=== PATIENT | male | born 1945 | race Two or more races ===

== ENCOUNTER 2016-12-17 13:17 | Inpatient (IN) | payer MEDICARE, OTHER ==
[2016-12-17 13:31] VITALS: TEMP 98.1; BMI 28.2
--- NOTE | 2016-12-17 13:43 | PDOC ---
Attending Attestation - HPI HPI: 12/17/16 14:45 70 year old male, with significant past medical history of , who was sent into the emergency department by Dr. Baker for admission for a lung biopsy after an outpatient abdomen and pelvis CT revealed a left lower lobe mass. The patient is complaining of a cough and sharp left upper back pain. Denies chest pain, SOB. Denies fever, chills, nausea, vomiting, abdominal pain. Denies leg swelling. Denies recent travel Allergies: NKDA PCP: Dr. Baker - Physicial Exam PE: 12/17/16 14:45 Vitals: Triage Vital signs reviewed General Appearance: no acute distress, well nourished well developed Head: Atraumatic Eyes: Pupils equal reactive round, extraocular movement intact Chest Wall: Nontender Cardiac: Regular rate and rhythym, no murmurs, no rubs, no gallops Lungs: Clear to auscultation bilateral, good air movement bilaterally Abdomen: Soft, non distended, normal bowel sounds, non tender to palpation Extremities: Full range of motion to all extremities, no cyanosis, clubbing, or edema Skin: Warm and dry, no rashes or lesions, no rash, no petechiae Psych: Normal mood, normal affect <Leslye Bradford - Last Filed: 12/17/16 14:45> - Resident Resident Name: Osmel Rod - ED Attending Attestation I have performed the following: I have examined & evaluated the patient, The case was reviewed & discussed with the resident, I agree w/resident's findings & plan, Exceptions are as noted - Medical Decision Making 12/17/16 15:47 Patient sent to emergency department for admission for biopsy for pulmonary nodule. Labs and admit for further management. 12/17/16 19:06 Patient was told by interventional radiology they cannot to his procedure for biopsy till Tuesday. Patient did not want to stay in the hospital till Tuesday to wait for this procedure. We attempted to call his primary care provider we asked the patient to wait while we contacted his primary care provider in the interim the patient eloped prior to this he told me that he will follow-up with his doctor on Tuesday Attempted to call the patient at home no answer Patient had understanding that he needs to have biopsy done expressed to me that he would follow-up with his doctor on Tuesday <Bandar Roman - Last Filed: 12/17/16 19:06>
--- NOTE | 2016-12-17 14:15 | PDOC ---
History of Present Illness - General Chief Complaint: Respiratory Stated Complaint: (PCP SENT) FOR ADMIT Time Seen by Provider: 12/17/16 13:37 History Source: Patient Exam Limitations: No Limitations - History of Present Illness Initial Comments: 12/18/16 00:02 70M with pmh of HTN COPD, HLD and tobacco use , sent to the ED for evaluation of Left lower lobe lung mass on CT by Dr. Baker for admission for a lung biopsy after an outpatient abdomen and pelvis CT revealed a left lower lobe mass. The patient is complaining of a cough and sharp left upper back pain. Denies chest pain, SOB. Denies fever, chills, nausea, vomiting, abdominal pain. Denies leg swelling. Denies recent travel Past History - Past Medical History Allergies/Adverse Reactions: Allergies Allergy/AdvReac Type Severity Reaction Status Date / Time No Known Allergies Allergy Verified 12/17/16 13:24 Home Medications: Ambulatory Orders Unobtainable [Unobtainable] 12/17/16 COPD: No HTN: Yes Hypercholesterolemia: Yes Psychiatric Problems: Yes (DEPRESSION/INSOMNIA) - Immunization History Immunization Up to Date: Yes - Suicide/Smoking/Psychosocial Hx Smoking History: Current every day smoker Have you smoked in the past 12 months: No Number of Cigarettes Smoked Daily: 8 Information on smoking cessation initiated: No Hx Alcohol Use: No Drug/Substance Use Hx: No Substance Use Type: None Review of Systems - Review of Systems Able to Perform ROS?: Yes Is the patient limited [place] proficient: No Constitutional: No: Symptoms Reported HEENTM: No: Symptoms Reported Respiratory: Yes: Cough, Shortness of Breath Cardiac (ROS): No: Symptoms Reported ABD/GI: No: Symptoms Reported : No: Symptoms Reported Musculoskeletal: No: Symptoms Reported Integumentary: No: Symptoms Reported Neurological: No: Symptoms reported *Physical Exam - Vital Signs Last Vital Signs Temp Pulse Resp BP Pulse Ox 98.1 F 67 18 123/74 97 12/17/16 13:25 12/17/16 13:25 12/17/16 13:25 12/17/16 13:25 12/17/16 13:25 - Physical Exam General Appearance: Yes: Nourished, Appropriately Dressed, Apparent Distress HEENT: positive: EOMI, FARHAT Neck: positive: Trachea midline. negative: Tender Respiratory/Chest: positive: Lungs Clear, Normal Breath Sounds. negative: Chest Tender Cardiovascular: positive: Regular Rhythm, Regular Rate, S1, S2 Gastrointestinal/Abdominal: positive: Normal Bowel Sounds, Soft. negative: Tender ED Treatment Course - LABORATORY CBC & Chemistry Diagram: 12/17/16 14:00 12/17/16 14:00 - RADIOLOGY Radiology Studies Ordered: Category Date Time Status CXRPORT [CHEST X-RAY PORTABLE*] [RAD] Stat Radiology 12/17/16 13:50 Taken Medical Decision Making - Medical Decision Making 12/18/16 00:05 70M here for evaluation of lower left lobe mass of the lung Patient was told by interventional radiology they cannot to his procedure for biopsy till Tuesday. Patient did not want to stay in the hospital till Tuesday to wait for this procedure. We attempted to call his primary care provider we asked the patient to wait while we contacted his primary care provider in the interim the patient eloped prior to this he told me that he will follow-up with his doctor on Tuesday Attempted to call the patient at home no answer Patient had understanding that he needs to have biopsy done expressed to me that he would follow-up with his doctor on Tuesday *DC/Admit/Observation/Transfer Diagnosis at time of Disposition: Mass of left lung - Discharge Dispostion Disposition: ELOPED Admit: Yes - Referrals - Patient Instructions - Post Discharge Activity
[2016-12-17 14:24] LABS: BASOPHIL 0.7 % (0-2.0); EOSINOPHIL 0.5 % (0-4.5); MCHC 33.6 g/dl (32.0-35.9); MEAN CELL VOLUME 89.2 fl (80-96); MEAN PLT VOLUME 7.8 fl (7.5-11.1); NEUTROPHILS 63.3 % (42.8-82.8); PLATELET COUNT 211 K/MM3 (134-434); RDW 13.6 % (11.9-15.9); WHITE BLOOD COUNT 8.6 K/mm3 (4.0-10.0)
[2016-12-17 14:43] LABS: URINE APPEARANCE CLEAR; URINE BILIRUBIN NEGATIVE (NEGATIVE); URINE BLOOD 2+ (NEGATIVE); URINE COLOR STRAW; URINE GLUCOSE (UA) NEGATIVE (NEGATIVE); URINE KETONE NEGATIVE (NEGATIVE); URINE NITRITE NEGATIVE (NEGATIVE); URINE PROTEIN NEGATIVE (NEGATIVE); URINE UROBILINOGEN NEGATIVE mg/dL (0.2-1.0)
[2016-12-17 14:45] LABS: URINE HYALINE CAST 1 /lpf; URINE RBC 1
[2016-12-17 14:46] LABS: URINE WBC 0
[2016-12-17 14:58] LABS: ALBUMIN 3.7 g/dl (3.4-5.0); ANION GAP 7 (8-16); CALCIUM 8.6 mg/dL (8.5-10.1); CO2 27 mmol/L (21-32); CREATININE 0.6 mg/dL (0.7-1.3); GLUCOSE,RANDOM 98 mg/dL (74-106); SGOT/AST 21 U/L (15-37); SGPT/ALT 38 U/L (12-78)
[2016-12-17 15:00] LABS: ALK PHOS 137 U/L (45-117); BILIRUBIN,TOTAL 0.5 mg/dL (0.2-1.0); TOT PROT 7.7 g/dl (6.4-8.2)
--- NOTE | 2016-12-17 16:13 | PN ---
Progress Note (short form) - Note Progress Note: PULMONARY CONSULTATION DICTATED 12/17/16 IMP LLL MASS LIKELY BRONCHOGENIC CA DYSPNEA HTN HYPERCHOLESTEROLEMIA PLAN INHALED BRONCHODILATORS O2 PRN CT GUIDED ASP BX LLL MASS PET SCAN OUTPATIENT DR NGUYEN Problem List - Problems (1) Dyspnea Code(s): R06.00 - DYSPNEA, UNSPECIFIED (2) Mass of left lung Code(s): R91.8 - OTHER NONSPECIFIC ABNORMAL FINDING OF LUNG FIELD (3) HTN (hypertension) Code(s): I10 - ESSENTIAL (PRIMARY) HYPERTENSION (4) Hypercholesteremia Code(s): E78.00 - PURE HYPERCHOLESTEROLEMIA, UNSPECIFIED (5) Tobacco abuse Code(s): Z72.0 - TOBACCO USE
[2016-12-17] MEDS ORDERED: ALBUTEROL SO4 2.5/IPRATROPIUM 0.5 INH SOL 3 ML VIAL.NEB. NEB PRN (16:14)
[2016-12-17 16:16] VITALS: BP 124/74; PULSE 65
[2016-12-17 17:16] LABS: URINE LEUK ESTERASE Negative (NEGATIVE)
--- NOTE | 2016-12-17 17:54 | CONS ---
DATE OF CONSULTATION: 12/17/2016 PULMONARY CONSULTATION REFERRING PHYSICIAN: Sohail Mcdaniel M.D. HISTORY OF PRESENT ILLNESS: The patient is a 70-year-old male, not any past medical history, admitted to [facility] for evaluation of left lower lobe mass. Patient has longstanding history of tobacco use. He has approximately 1 pack per day since teenage years. He apparently underwent a CT of the abdomen and pelvis yesterday which revealed left lower lobe mass, subsequently advised to go to the emergency room. He has been complaining of increasing cough and sharp upper left back pain recently. He denies any hemoptysis, denies any fevers or weight loss or night sweats. He does complain of shortness of breath with exertion. Denies any fevers or chills. He was sent to the emergency room above. Patient denies any history of occupational exposures. He was born in [facility] and moved to the [facility] in the early . There is no history of recent travel. No history of DVT or PE in the past. PAST MEDICAL HISTORY: Again this includes likely mild COPD. Includes hypertension, hypercholesterolemia, depression, insomnia. SOCIAL HISTORY: Born in [facility], moved to the [facility] in early . No occupational exposures. History of tobacco use, 1 pack per day since teenage years. REVIEW OF SYSTEMS: No orthopnea, no PND. Positive cough, no hemoptysis. Positive back pain, no chest pain, no palpitations, no abdominal pain. MEDICATION: Include unknown medications. PHYSICAL EXAMINATION: General: The patient is a well-developed, well-nourished male, awake, alert, in no acute distress. Vital signs: He is currently afebrile. Blood pressure is 123/74, respiratory rate 18, weight is 175 pounds. HEENT: Head is normocephalic, atraumatic. Neck: Supple. Heart: Regular. S1, S2. Chest: A few scattered rhonchi with a few scattered bilateral wheezes. Abdomen: Soft. Bowel sounds positive. Extremities: No cyanosis, edema. LABORATORY: WBC is 8.6, hemoglobin 13.2, hematocrit 39.2 with platelet count of 211,000. BUN 9, creatinine 0.6. Abdominal CT reveals a left lower lobe mass, 2.9 x 1.8 cm. IMPRESSION: 1. Left lower lobe mass, likely bronchogenic carcinoma in view of longstanding history of tobacco use. 2. Likely underlying chronic obstructive pulmonary disease. 3. Hypertension. 4. Hypercholesterolemia. PLAN: Inhaled bronchodilators, nasal O2 p.r.n. Schedule biopsy, PET scan as outpatient. Also PFTs as outpatient. NINFA NGUYEN M.D. GIRISH/[id number]
== END 2016-12-17 16:25 | disposition left against medical advice (07) | DRG 182 ==
LOC: JER 13:17 → JERBED 14:15
PROVIDERS: ADMIT Family Medicine; ATTEND Family Medicine
DX: D38.1 Neoplasm of uncertain behavior of trachea, bronchus and lung (principal); R91.8 Other nonspecific abnormal finding of lung field; J44.9 Chronic obstructive pulmonary disease, unspecified; F17.210 Nicotine dependence, cigarettes, uncomplicated; I10 Essential (primary) hypertension; F32.9 Major depressive disorder, single episode, unspecified; G47.00 Insomnia, unspecified; E78.00 Pure hypercholesterolemia, unspecified
CPT/HCPCS: 36415; 71010-TC; 80053; 81003; 81015; 85025; 99282-25

== ENCOUNTER 2016-12-28 08:10 | Day surgery (SDC) | payer MEDICARE, OTHER ==
[2016-12-27 10:49] VITALS: BMI 28.2
[2016-12-28 09:06] LABS: INR 1.06 (0.82-1.09)
[2016-12-28] MEDS ORDERED: ACETAMINOPHEN 500 MG TABLET (FP) PO PRN (17:58)
[2016-12-28] MEDS ORDERED: oxyCODONE HCL 5 MG TABLET PO PRN (17:59)
[2016-12-28] MEDS: HEPARIN NA (PORCINE) 5,000 UNITS/ML 1ML VIAL SQ SCH (21:01)
[2016-12-28] MEDS ORDERED: ATORVASTATIN CA 40 MG TABLET (FP) PO SCH (22:00)
[2016-12-28] MEDS ORDERED: ZOLPIDEM TARTRATE 5 MG TABLET PO SCH (22:00)
[2016-12-29 07:32] LABS: BASOPHIL 0.6 % (0-2.0); EOSINOPHIL 1.9 % (0-4.5); MCH 29.8 pg (25.7-33.7); MCHC 33.7 g/dl (32.0-35.9); MEAN CELL VOLUME 88.4 fl (80-96); MEAN PLT VOLUME 8.8 fl (7.5-11.1); NEUTROPHILS 49.1 % (42.8-82.8); PLATELET COUNT 232 K/MM3 (134-434); RDW 13.7 % (11.9-15.9); WHITE BLOOD COUNT 8.8 K/mm3 (4.0-10.0)
[2016-12-29] MEDS ORDERED: PT OWN MED DRAWER 7, Y5N ONE (09:10)
[2016-12-29] MEDS: HEPARIN NA (PORCINE) 5,000 UNITS/ML 1ML VIAL SQ SCH (09:13)
[2016-12-29] MEDS ORDERED: VENLAFAXINE HCL 75 MG E.R. CAPSULES (FP) PO SCH (10:00)
[2016-12-29] MEDS ORDERED: PANTOPRAZOLE 20 MG TABLET (FP) PO SCH (10:00)
[2016-12-29 10:12] VITALS: BP 117/69; PULSE 62; TEMP 97.7
--- NOTE | 2016-12-29 11:17 | CON.PULM ---
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 No: AFIB, CAD, CHF Pulmonary: Yes: COPD Gastrointestinal: No: Ascites Hepatobiliary: No: Cirrhosis Renal/: No: Renal Failure Heme/Onc: No: Anemia Psych: No: Addictions Musculoskeletal: No: Bursitis Endocrine: No: Diabetes Mellitus - Past Surgical History Past Surgical History: Yes: None - Alcohol/Substance Use Hx Alcohol Use: No - Smoking History Smoking history: Current every day smoker Have you smoked in the past 12 months: No Aproximately how many cigarettes per day: 8 - Social History ADL: Independent Place of : Other History of Recent Travel: No Home Medications - Allergies Allergies/Adverse Reactions: Allergies Allergy/AdvReac Type Severity Reaction Status Date / Time No Known Allergies Allergy Verified 12/27/16 10:49 - Home Medications Home Medications: Ambulatory Orders Atorvastatin Ca [Lipitor] 40 mg PO HS 12/27/16 Ibuprofen [Motrin -] 600 mg PO PRN PRN 12/27/16 Oxycodone HCl/Acetaminophen [Percocet 5-325 mg Tablet] 1 tablet PO PRN PRN 12/27 Pantoprazole Sodium [Protonix -] 20 mg PO DAILY 12/27/16 Zolpidem Tartrate 10 mg PO HS 12/27/16 Acetaminophen [Tylenol -] 500 mg PO Q6H PRN 12/28/16 Venlafaxine HCl ER [Effexor Xr -] 150 mg PO DAILY 12/28/16 Family Disease History - Family Disease History Family History: Unremarkable Review of Systems - Review of Systems Constitutional: denies: Fever Eyes: denies: Blurred Vision HENT: denies: Difficult Swallowing Neck: denies: Decreased ROM Cardiovascular: denies: Chest Pain Respiratory: denies: Cough Gastrointestinal: denies: Abdominal Pain Genitourinary: denies: Burning Breasts: reports: No Symptoms Reported Musculoskeletal: reports: No Symptoms Integumentary: reports: No Symptoms Psychiatric: reports: Depression Physical Exam Vital Sings: Vital Signs Temperature 97.7 F 12/29/16 08:05 Pulse Rate 62 12/29/16 08:05 Respiratory Rate 18 12/29/16 08:05 Blood Pressure 117/69 12/29/16 08:05 O2 Sat by Pulse Oximetry (%) 98 12/28/16 17:19 Constitutional: Yes: Calm Eyes: Yes: EOM Intact HENT: Yes: Normocephalic Neck: Yes: Trachea Midline Cardiovascular: Yes: Regular Rate and Rhythm Respiratory: Yes: CTA Bilaterally ...Inspection: Yes: WNL Gastrointestinal: Yes: WNL Extremities: Yes: WNL Labs: CBC, BMP 12/29/16 06:00 REST REVIEWED Imaging - Results Chest X-ray: Report Reviewed, Image Reviewed Problem List - Problems (1) Iatrogenic pneumothorax Code(s): J95.811 - POSTPROCEDURAL PNEUMOTHORAX (2) HTN (hypertension) Code(s): I10 - ESSENTIAL (PRIMARY) HYPERTENSION (3) Hypercholesteremia Code(s): E78.00 - PURE HYPERCHOLESTEROLEMIA, UNSPECIFIED (4) Mass of left lung Code(s): R91.8 - OTHER NONSPECIFIC ABNORMAL FINDING OF LUNG FIELD Assessment/Plan IATROGENIC PTX S/P LUNG BX DIMINISHED IN SIZE SUGGEST DISCHARGE HOME TO RETURN FOR REPEAT CXR 24-48 HOURS WILL RETURN SOONER IF ANY SYMPTOMS DEVELOP IE. SOB/CP/WORSENING VJ MCKENZIE MD
--- NOTE | 2016-12-29 12:36 | HP ---
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 No: AFIB, CAD, CHF Pulmonary: Yes: COPD Gastrointestinal: No: Ascites Hepatobiliary: No: Cirrhosis Renal/: No: Renal Failure Heme/Onc: No: Anemia Psych: No: Addictions Musculoskeletal: No: Bursitis Endocrine: No: Diabetes Mellitus - Past Surgical History Past Surgical History: Yes: None - Smoking History Smoking history: Current every day smoker Have you smoked in the past 12 months: No Aproximately how many cigarettes per day: 8 - Alcohol/Substance Use Hx Alcohol Use: No - Social History ADL: Independent History of Recent Travel: No Home Medications - Allergies Allergies/Adverse Reactions: Allergies Allergy/AdvReac Type Severity Reaction Status Date / Time No Known Allergies Allergy Verified 12/27/16 10:49 - Home Medications Home Medications: Ambulatory Orders Atorvastatin Ca [Lipitor] 40 mg PO HS 12/27/16 Ibuprofen [Motrin -] 600 mg PO PRN PRN 12/27/16 Oxycodone HCl/Acetaminophen [Percocet 5-325 mg Tablet] 1 tablet PO PRN PRN 12/27 Pantoprazole Sodium [Protonix -] 20 mg PO DAILY 12/27/16 Zolpidem Tartrate 10 mg PO HS 12/27/16 Acetaminophen [Tylenol -] 500 mg PO Q6H PRN 12/28/16 Venlafaxine HCl ER [Effexor Xr -] 150 mg PO DAILY 12/28/16 Physical Examination Vital Signs: Vital Signs Temperature 97.7 F 12/29/16 08:05 Pulse Rate 62 12/29/16 08:05 Respiratory Rate 18 12/29/16 08:05 Blood Pressure 117/69 12/29/16 08:05 O2 Sat by Pulse Oximetry (%) 98 12/28/16 17:19 Labs: CBC, BMP 12/29/16 06:00
--- NOTE | 2016-12-29 12:38 | DS ---
Physical Examination Vital Signs: Vital Signs Temperature 97.7 F 12/29/16 08:05 Pulse Rate 62 12/29/16 08:05 Respiratory Rate 18 12/29/16 08:05 Blood Pressure 117/69 12/29/16 08:05 O2 Sat by Pulse Oximetry (%) 98 12/28/16 17:19 Labs: CBC, BMP 12/29/16 06:00 Discharge Summary Reason For Visit: LUNG MASS Current Active Problems Iatrogenic pneumothorax (Acute) Condition: Improved - Instructions Diet, Activity, Other Instructions: chest xray on tuesday Referrals: Jose Baker MD [Staff Physician] - 1 Week Disposition: HOME - Home Medications Comprehensive Discharge Medication List: Ambulatory Orders Atorvastatin Ca [Lipitor] 40 mg PO HS 12/27/16 Ibuprofen [Motrin -] 600 mg PO PRN PRN 12/27/16 Oxycodone HCl/Acetaminophen [Percocet 5-325 mg Tablet] 1 tablet PO PRN PRN 12/27 Pantoprazole Sodium [Protonix -] 20 mg PO DAILY 12/27/16 Zolpidem Tartrate 10 mg PO HS 12/27/16 Acetaminophen [Tylenol .Extra-Strength -] 500 mg PO Q6H PRN 12/28/16 Venlafaxine HCl ER [Effexor Xr -] 150 mg PO DAILY 12/28/16
--- NOTE | 2017-01-03 14:03 | PATH ---
Surgical Pathology Report Patient Name: MALIK MASSEY Med. Rec. #: [id number] /Age/Gender: 1945 (Age: 71) / M Account: [id number] Location: [facility] MED/SURG Taken: 12/28/2016 Received: 12/28/2016 Reported: 01/03/2017 Physicians: Lavonne Ontiveros M.D. Specimen(s) Received LUNG BIOPSY Clinical History Preoperative diagnosis: 70-year-old male with left lung mass Postoperative diagnosis: Left lung mass, rule out primary lung neoplasm Final Diagnosis LUNG, LEFT, NEEDLE CORE BIOPSY: PULMONARY ADENOCARCINOMA, MODERATELY TO POORLY DIFFERENTIATED/UNDIFFERENTIATED. Comment: Sections reveal an adenocarcinoma growing with lepidic and acinar patterns. Additionally there are areas with poorly differentiated cells growing with a solid pattern. Immunohistochemical stains performed and interpreted at [facility] show the following results: All of the neoplastic cells stain with AE1/3 and CK7. TTF-1 is positive in the lepidic and acinar areas, but not in the solid area. P63 and CK20 are negative. Immunohistochemical stains performed at [place], [place] ([id number]) and interpreted at [facility] show the following results: The lepidic and acinar areas stain with NAZARIO and MOC-31, but not the solid areas. There is no staining with CK5/6, p40, or CD56. The overall findings are consistent with a pulmonary adenocarcinoma with a poorly differentiated to undifferentiated component. No squamous differentiation is identified. PD-L1 (Keytruda) IHC, Clone 22C3 Pharm DX performed and interpreted at [place], [place] ([id number]) shows the following: RESULT: PD-L1 (Keytruda) TPS: >90% (High PD-L1 Expression) Reference Range: TPS=Tumor Proportion Score (% of at least 100 viable tumor cells showing complete or partial membrane staining at = 1+) TPS <1% = No Expression TPS 1-49% = Low Expression. (Eligible for second line treatment with Keytruda) TPS =50% = High Expression. (Eligible for first or second line treatment with Keytruda) This case was initially discussed with Dr. Jose Baker on December 29, 2016. Electronically Signed Chano Celestin M.D. Gross Description Received in formalin labeled "left lung biopsy," are 4 aguillon, cylindrical portions of soft tissue ranging from 0.2-0.8 cm in length and averaging 0.1 cm in diameter. The specimen is submitted in toto in one cassette. 12/28/201612/28/2016
== END 2016-12-29 15:24 | disposition home or self-care (01) ==
LOC: JRADIR 08:10 → J8W 17:44 → JRADIR 12-29 15:24
PROVIDERS: ATTEND Family Medicine
PROC: 0BBL3ZX Excision of Left Lung, Percutaneous Approach, Diagnostic (ICD-10-PCS; 2016-12-28)
PROC: BB4CZZZ Ultrasonography of Mediastinum (ICD-10-PCS; principal; 2016-12-28 10:00)
DX: C34.92 Malignant neoplasm of unspecified part of left bronchus or lung (principal)
CPT/HCPCS: 32405; 36415; 71010-TC; 71035-TC; 77012-TC; 85025; 85610; 88305-TC; 88341-TC; 88342-TC; 94760; J1644

== ENCOUNTER 2017-07-06 12:38 | Inpatient (IN) | payer MEDICARE, OTHER ==
--- NOTE | 2017-07-06 13:46 | PDOC ---
History of Present Illness - General Chief Complaint: Shortness of Breath Stated Complaint: CHEST PAIN Time Seen by Provider: 07/06/17 12:46 History Source: Patient - History of Present Illness Timing/Duration: reports: other Associated Symptoms: reports: chest pain/soreness, cough, fever/chills, shortness of breath. denies: headache Past History - Past Medical History Allergies/Adverse Reactions: Allergies Allergy/AdvReac Type Severity Reaction Status Date / Time No Known Allergies Allergy Verified 07/06/17 12:46 Home Medications: Ambulatory Orders Atorvastatin Ca [Lipitor] 40 mg PO HS 12/27/16 Ibuprofen [Motrin -] 600 mg PO PRN PRN 12/27/16 Oxycodone HCl/Acetaminophen [Percocet 5-325 mg Tablet] 1 tablet PO PRN PRN 12/27 Pantoprazole Sodium [Protonix -] 20 mg PO DAILY 12/27/16 Zolpidem Tartrate 10 mg PO HS 12/27/16 Acetaminophen [Tylenol .Extra-Strength -] 500 mg PO Q6H PRN 12/28/16 Venlafaxine HCl ER [Effexor Xr -] 150 mg PO DAILY 12/28/16 Anemia: No Asthma: No Cancer: Yes Cardiac Disorders: No CVA: No COPD: No CHF: No Dementia: No Diabetes: No GI Disorders: No Disorders: No HTN: Yes Hypercholesterolemia: Yes Liver Disease: No Psychiatric Problems: Yes (DEPRESSION/INSOMNIA) Seizures: No Thyroid Disease: No Lung CA: Yes - Surgical History Abdominal Surgery: No Appendectomy: No Cardiac Surgery: No Cholecystectomy: No Lung Surgery: No Neurologic Surgery: No Orthopedic Surgery: No (sx fx left le ) - Immunization History Immunization Up to Date: Yes - Suicide/Smoking/Psychosocial Hx Smoking History: Current every day smoker Have you smoked in the past 12 months: Yes Number of Cigarettes Smoked Daily: 10 Information on smoking cessation initiated: No 'Breaking Loose' booklet given: 12/28/16 Hx Alcohol Use: No Drug/Substance Use Hx: No Substance Use Type: None Hx Substance Use Treatment: No Review of Systems - Review of Systems Constitutional: Yes: Fever Respiratory: Yes: Cough, Shortness of Breath. No: Wheezing Cardiac (ROS): Yes: Chest Pain *Physical Exam - Vital Signs Last Vital Signs Temp Pulse Resp BP Pulse Ox 99.5 F 101 H 28 H 104/78 99 07/06/17 12:40 07/06/17 13:11 07/06/17 12:40 07/06/17 12:40 07/06/17 13:11 - Physical Exam General Appearance: Yes: Appropriately Dressed. No: Apparent Distress HEENT: positive: Normal Voice Neck: positive: Supple. negative: Lymphadenopathy (R), Lymphadenopathy (L) Respiratory/Chest: positive: Decreased Breath Sounds. negative: Respiratory Distress Gastrointestinal/Abdominal: positive: Soft. negative: Tender Extremity: positive: Normal Inspection Integumentary: positive: Dry, Warm Neurologic: positive: Fully Oriented, Alert, Normal Mood/Affect ED Treatment Course - LABORATORY CBC & Chemistry Diagram: 07/06/17 13:53 07/06/17 13:53 - RADIOLOGY Radiology Studies Ordered: Category Date Time Status CHEST CTA [CT] Stat CT Scan 07/06/17 13:39 Ordered CHEST X-RAY PORTABLE* [RAD] Stat Radiology 07/06/17 13:18 Ordered Medical Decision Making - Medical Decision Making 07/06/17 13:40 71-year-old male, history of HTN, HLD, CAD, [place], former smoker, COPD, not on oxygen, recently diagnosed with metastatic lung CA (w/ brain and ?liver mets), unclear if started on chemotherapy or radiation as of yet, follows up with Dr. Miller of onc, here with persistent shortness of breath 3 days w/ possible chest pressure. Also complaining of cough and subjective fever. No wheezing, palpitations, leg pain or swelling. Denies any other acute symptoms at this time See exam R/o ACS vs PE vs PNA vs COPD flare (though no wheezing) Tachy and tachypneic at triage w/ decreased BS on the L, maintaining sats -NC -EKG -CXR -CTA -labs -onc c/s -admit 07/06/17 15:19 Wbc 12 w/ left sided large pleural effusion and infiltrate on CXR. Will give dose of abx and admit at this time. Discussed with Dr. Baker who states patient has not yet been treated for his metastatic lung CA. States plan would be for immunotherapy. Patient offered hospice and is currently refusing per M.D. Patient admitted to Dr. Mcdaniel. Lavonne also requesting consult to Dr. Cobb of pulmonary. Consult to Onc also placed *DC/Admit/Observation/Transfer Diagnosis at time of Disposition: Pneumonia Qualifiers: Pneumonia type: due to unspecified organism Laterality: left Lung location: unspecified part of lung Qualified Code(s): J18.9 - Pneumonia, unspecified organism Lung cancer Qualifiers: Laterality: left Lung location: unspecified part of lung Qualified Code(s): C34.92 - Malignant neoplasm of unspecified part of left bronchus or lung - Discharge Dispostion Condition at time of disposition: Fair Decision to Admit order: Yes - Referrals - Patient Instructions - Post Discharge Activity
[2017-07-06 14:09] LABS: BASO % 0.4 % (0-2.0); EOS % 1.8 % (0-4.5); HEMATOCRIT 34.7 % (35.4-49); HEMOGLOBIN 11.9 GM/dL (11.7-16.9); LYMPH % 7.7 % (8-40); MCH 30.5 pg (25.7-33.7); MCHC 34.3 g/dl (32.0-35.9); MEAN CELL VOLUME 88.8 fl (80-96); MEAN PLT VOLUME 7.7 fl (7.5-11.1); NEUT % 85.1 % (42.8-82.8); PLATELET COUNT 194 K/MM3 (134-434); RBC 3.91 M/mm3 (4.00-5.60); WHITE BLOOD COUNT 12.8 K/mm3 (4.0-10.0)
[2017-07-06 14:29] LABS: ALBUMIN 2.9 g/dl (3.4-5.0); ANION GAP 10 (8-16); BLOOD UREA NITROGEN 15 mg/dL (7-18); CALCIUM 7.9 mg/dL (8.5-10.1); CHLORIDE 106 mmol/L (98-107); CO2 26 mmol/L (21-32); CREATININE 0.7 mg/dL (0.7-1.3); GLUCOSE,RANDOM 116 mg/dL (74-106); POTASSIUM 3.2 mmol/L (3.5-5.1); SGOT/AST 15 U/L (15-37); SGPT/ALT 43 U/L (12-78); SODIUM 142 mmol/L (136-145)
[2017-07-06 14:34] LABS: ALK PHOS 100 U/L (45-117); BILIRUBIN,TOTAL 0.6 mg/dL (0.2-1.0); TOT PROT 6.3 g/dl (6.4-8.2)
[2017-07-06 14:50] LABS: ACANTHOCYTES 0; ANISOCYTOSIS 0; HELMET CELLS 0; HOWELL-JOLLY BODIES 0; MACROCYTOSIS 0; OVALOCYTE 0; PLATELET ESTIMATE NORMAL; ROULEAU 0; SICKELED CELLS 0; TARGET CELLS 0; TEAR DROP CELLS 0; TOXIC GRANULATION 0
[2017-07-06] MEDS ORDERED: IBUPROFEN 600 MG TABLET (FP) PO PRN (15:13)
[2017-07-06] MEDS ORDERED: CEFTRIAXONE 1 GM in DEXTROSE 5%-WATER - 50 ML IVPB ONE (15:13)
[2017-07-06] MEDS ORDERED: AZITHROMYCIN IVPB 500 MG in DEXTROSE 5%-WATER - 250 ML IVPB ONE (15:13)
[2017-07-06] MEDS ORDERED: ACETAMINOPHEN 500 MG TABLET (FP) PO PRN (15:13)
[2017-07-06] MEDS ORDERED: KCL 10 MEQ IVPB 10 MEQ/100 ML INFUS.BAG IVPB SCH (15:15)
[2017-07-06] MEDS ORDERED: cefTRIAXone SODIUM 1 GM VIAL ONE (15:29)
[2017-07-06] MEDS ORDERED: AZITHROMYCIN IVPB 250 ML IVPB ONE (15:29)
[2017-07-06] MEDS ORDERED: FUROSEMIDE 40 MG/4 ML INJECTABLE VIAL ONE (15:31)
[2017-07-06] MEDS: FUROSEMIDE 40 MG/4 ML INJECTABLE VIAL IVPUSH SCH (15:32)
[2017-07-06] MEDS ORDERED: VANCOMYCIN 1,000 MG in DEXTROSE 5%-WATER - 250 ML IVPB ONE (16:25)
[2017-07-06] MEDS ORDERED: ALBUTEROL SO4 2.5/IPRATROPIUM 0.5 INH SOL 3 ML VIAL.NEB. NEB ONE ×3 (16:33→18:12)
[2017-07-06 17:17] LABS: URINE APPEARANCE CLEAR; URINE BILIRUBIN NEGATIVE (<2.0 mg/dL); URINE BLOOD NEGATIVE (NEGATIVE); URINE COLOR LTYELLOW; URINE GLUCOSE (UA) NEGATIVE (NEGATIVE); URINE KETONE NEGATIVE (NEGATIVE); URINE LEUK ESTERASE NEGATIVE (NEGATIVE); URINE NITRITE NEGATIVE (NEGATIVE); URINE PROTEIN NEGATIVE (NEGATIVE); URINE UROBILINOGEN 4.0 E.U/dl mg/dL (0.2-1.0)
--- NOTE | 2017-07-06 17:23 | CON.CARD ---
Consult Consult Specialty:: Cardiology Referred by:: Dr. Mcdaniel Reason for Consultation:: SOB - History of Present Illness Chief Complaint: SOB History of Present Illness: 71M HTN, HLD, CAD h/o [place], past smoker, COPD, metastatic lung CA recent admission with bx complicated by pneumothorax, came to ER with SOB, chest CT showed possible pneumonia and pleural effusion. Went to evaluate pt in ER. Pt was walking around ER, agitated, pt pulled out his IV and was dripping blood in the ER and splashing blood on the nursing staff. Pt was unable to be examined. Based on pts history and work up that has been completed thus far his symptoms are consistent with pulmonary etiology of lung CA, pleural effusions, and possible PNA. - History Source History Provided By: Medical Record Limitations to Obtaining History: Uncooperative - Past Medical History Cardio/Vascular: Yes: HTN, Hyperlipdemia. No: AFIB, CAD, CHF Pulmonary: Yes: COPD - Past Surgical History Past Surgical History: Yes: None - Alcohol/Substance Use Hx Alcohol Use: No - Smoking History Smoking history: Current every day smoker Have you smoked in the past 12 months: Yes Aproximately how many cigarettes per day: 10 - Social History ADL: Independent History of Recent Travel: No Home Medications - Allergies Allergies/Adverse Reactions: Allergies Allergy/AdvReac Type Severity Reaction Status Date / Time No Known Allergies Allergy Verified 07/06/17 12:46 - Home Medications Home Medications: Ambulatory Orders Atorvastatin Ca [Lipitor] 40 mg PO HS 12/27/16 Ibuprofen [Motrin -] 600 mg PO PRN PRN 12/27/16 Oxycodone HCl/Acetaminophen [Percocet 5-325 mg Tablet] 1 tablet PO PRN PRN 12/27 Pantoprazole Sodium [Protonix -] 20 mg PO DAILY 12/27/16 Zolpidem Tartrate 10 mg PO HS 12/27/16 Acetaminophen [Tylenol .Extra-Strength -] 500 mg PO Q6H PRN 12/28/16 Venlafaxine HCl ER [Effexor Xr -] 150 mg PO DAILY 12/28/16 Family Disease History - Family Disease History Family History: Unable to Obtain Review of Systems - Review of Systems Cardiovascular: reports: Shortness of Breath Respiratory: reports: SOB - Risk Factors Known Risk Factors: Yes: Other (Unable to perform physical exam) Vital Signs: Vital Signs Temperature 99.5 F 07/06/17 12:40 Pulse Rate 101 H 07/06/17 13:11 Respiratory Rate 28 H 07/06/17 12:40 Blood Pressure 104/78 07/06/17 12:40 O2 Sat by Pulse Oximetry (%) 99 07/06/17 13:11 - Other Data Labs, Other Data: CBC, BMP 07/06/17 13:53 07/06/17 13:53 Troponin, BNP 07/06/17 13:53 Troponin I 0.05 Troponin, BNP 07/06/17 13:53 Troponin I 0.05 Imaging - Results Chest X-ray: Report Reviewed, Image Reviewed EKG: Pending (ekg not available to review) Assessment/Plan 71M HTN, HLD, CAD h/o [place], past smoker, COPD, metastatic lung CA recent admission with bx complicated by pneumothorax, came to ER with SOB, chest CT showed possible pneumonia and pleural effusion. Went to evaluate pt in ER. Pt was walking around ER, agitated, pt pulled out his IV and was dripping blood in the ER and splashing blood on the nursing staff. Pt was unable to be examined. Based on pts history and work up that has been completed thus far his symptoms are consistent with pulmonary etiology of lung CA, pleural effusions, and possible PNA. Pt was unable to be examined in the ER due to combativeness -based on review of the chart and presenting symptoms as well as imaging that was completed the most likely etiology of his symptoms are pulmonary in origin -unlikely cardiac -cardiac enzymes wnl -no additional planned inpatient cardiac work up at this time. Please call with any additional questions.
[2017-07-06] MEDS ORDERED: HALOPERIDOL LACTATE 5 MG/ML IM ONE ×2 (17:27→18:59)
[2017-07-06] MEDS ORDERED: HALOPERIDOL LACTATE 5 MG/ML ONE ×2 (17:30→18:23)
--- NOTE | 2017-07-06 18:45 | PDOC ---
*Physical Exam - Vital Signs Last Vital Signs Temp Pulse Resp BP Pulse Ox 99.5 F 101 H 28 H 104/78 99 07/06/17 12:40 07/06/17 13:11 07/06/17 12:40 07/06/17 12:40 07/06/17 13:11 - Physical Exam General Appearance: Yes: Appropriately Dressed HEENT: positive: Normal ENT Inspection Neck: positive: Trachea midline Respiratory/Chest: positive: Other (decreased breath sounds, distant breath sounds) Cardiovascular: positive: Regular Rhythm, S1, S2, Tachycardia Gastrointestinal/Abdominal: positive: Normal Bowel Sounds, Flat. negative: Tender Musculoskeletal: positive: Normal Inspection Extremity: positive: Normal Capillary Refill, Normal Inspection Integumentary: positive: Normal Color, Dry, Warm ED Treatment Course - LABORATORY CBC & Chemistry Diagram: 07/06/17 13:53 07/06/17 13:53 - ADDITIONAL ORDERS Additional order review: Laboratory Results 07/06/17 13:53 Sodium 142 Potassium 3.2 L Chloride 106 Carbon Dioxide 26 Anion Gap 10 BUN 15 D Creatinine 0.7 Creat Clearance w eGFR > 60 Random Glucose 116 H Calcium 7.9 L Total Bilirubin 0.6 D AST 15 ALT 43 D Alkaline Phosphatase 100 D Creatine Kinase 68 Troponin I 0.05 Total Protein 6.3 L Albumin 2.9 L D 07/06/17 13:53 RBC 3.91 L MCV 88.8 MCHC 34.3 RDW 18.0 H MPV 7.7 D Neutrophils % 85.1 H D Lymphocytes % 7.7 L D Monocytes % 5.0 Eosinophils % 1.8 Basophils % 0.4 - Medications Given in the ED: ED Medications Discontinued Medications Generic Name Dose Route Start Last Admin Trade Name Andreasq PRN Reason Stop Dose Admin Haloperidol 2.5 mg 07/06/17 17:27 07/06/17 17:42 Haldol Injection (Fast Acting) - IM 07/06/17 17:28 2.5 mg ONCE ONE Administration Azithromycin 500 mg/ Dextrose 250 mls @ 250 mls/hr 07/06/17 15:13 07/06/17 15 :32 IVPB 07/06/17 16:12 250 mls/hr ONCE ONE Administration Ceftriaxone Sodium 1 gm/ 50 mls @ 100 mls/hr 07/06/17 15:13 07/06/17 15:32 Dextrose IVPB 07/06/17 15:42 100 mls/hr ONCE ONE Administration Medical Decision Making - Medical Decision Making 07/06/17 18:40 71 yo male with h/o copd, lung CA with mets, known brain mets, followed by onelia arzate and dr nuñez, here with worsening sob. pt denies f/c no cp. no leg swelling. pt is upset, states he was recently admitted for 14 days, and does not want to be admitted. on exam awake alert. decreased breath sounds bilaterally. palor. no ext edema. differential: infection, progressive disease, pe, effusion, anemia, plan labs cxr, ct angio r/o pe. pe negative. cxr with infiltrate. given abx. pt encouraged to stay. d/w with pcp dr. nuñez. pt has signed DNR . seen with Bobbi Pereira. agree with assessment and plan. 07/06/17 18:45 *DC/Admit/Observation/Transfer Diagnosis at time of Disposition: Pneumonia Qualifiers: Pneumonia type: due to unspecified organism Laterality: left Lung location: unspecified part of lung Qualified Code(s): J18.9 - Pneumonia, unspecified organism Lung cancer Qualifiers: Laterality: left Lung location: unspecified part of lung Qualified Code(s): C34.92 - Malignant neoplasm of unspecified part of left bronchus or lung - Discharge Dispostion Condition at time of disposition: Fair - Referrals - Patient Instructions - Post Discharge Activity
[2017-07-06] MEDS ORDERED: FUROSEMIDE 40 MG/4 ML INJECTABLE VIAL IVPUSH SCH (22:00)
[2017-07-06] MEDS: HEPARIN NA (PORCINE) 5,000 UNITS/ML 1ML VIAL SQ SCH (23:33)
[2017-07-06] MEDS: ATORVASTATIN CA 40 MG TABLET (FP) PO SCH (23:33)
[2017-07-07 03:44] VITALS: BMI 25.9
--- NOTE | 2017-07-07 08:18 | HP ---
Admitting History and Physical - Admission History of Present Illness: 71M HTN, HLD, CAD h/o [place], past smoker, COPD, metastatic lung CA recent admission with bx complicated by pneumothorax, came to ER with SOB, chest CT showed possible pneumonia and pleural effusion. - Past Medical History Cardiovascular: Yes: HTN, Hyperlipdemia. No: AFIB, CAD, CHF Pulmonary: Yes: COPD Heme/Onc: Yes: Cancer (adencarcinoma of lung) - Past Surgical History Past Surgical History: Yes: None - Smoking History Smoking history: Former smoker Have you smoked in the past 12 months: Yes Aproximately how many cigarettes per day: 10 - Alcohol/Substance Use Hx Alcohol Use: No - Social History ADL: Independent History of Recent Travel: No Home Medications - Allergies Allergies/Adverse Reactions: Allergies Allergy/AdvReac Type Severity Reaction Status Date / Time No Known Allergies Allergy Verified 07/06/17 12:46 - Home Medications Home Medications: Ambulatory Orders Atorvastatin Ca [Lipitor] 40 mg PO HS 12/27/16 Ibuprofen [Motrin -] 600 mg PO PRN PRN 12/27/16 Oxycodone HCl/Acetaminophen [Percocet 5-325 mg Tablet] 1 tablet PO PRN PRN 12/27 Pantoprazole Sodium [Protonix -] 20 mg PO DAILY 12/27/16 Zolpidem Tartrate 10 mg PO HS 12/27/16 Acetaminophen [Tylenol .Extra-Strength -] 500 mg PO Q6H PRN 12/28/16 Venlafaxine HCl ER [Effexor Xr -] 150 mg PO DAILY 12/28/16 Review of Systems - Review of Systems Cardiovascular: reports: Chest Pain (resolved per pt), Shortness of Breath Respiratory: reports: Cough, Orthopnea, SOB Gastrointestinal: denies: Abdominal Pain, Constipation, Diarrhea Genitourinary: reports: No Symptoms Neurological: reports: Weakness Physical Examination Vital Signs: Vital Signs Temperature 98.1 F 07/07/17 07:00 Pulse Rate 91 H 07/07/17 07:00 Respiratory Rate 20 07/07/17 07:00 Blood Pressure 143/73 07/07/17 07:00 O2 Sat by Pulse Oximetry (%) 95 07/07/17 01:00 Cardiovascular: Yes: S1, S2 Respiratory: Yes: Rales Gastrointestinal: Yes: Normal Bowel Sounds, Soft. No: Tenderness Edema: No Labs: CBC, BMP 05/30/18 13:53 07/06/17 13:53 Imaging - Results Cat Scan: Report Reviewed Problem List - Problems (1) Pneumonia Assessment/Plan: -Iv abx -ID consult Code(s): J18.9 - PNEUMONIA, UNSPECIFIED ORGANISM Qualifiers: Pneumonia type: due to unspecified organism Laterality: left Lung location: unspecified part of lung Qualified Code(s): J18.9 - Pneumonia, unspecified organism (2) Adenocarcinoma, lung Assessment/Plan: -Oncology consult Code(s): C34.90 - MALIGNANT NEOPLASM OF UNSP PART OF UNSP BRONCHUS OR LUNG (3) COPD (chronic obstructive pulmonary disease) Assessment/Plan: -nebs -iv steroids -pulm consult Code(s): J44.9 - CHRONIC OBSTRUCTIVE PULMONARY DISEASE, UNSPECIFIED (4) HTN (hypertension) Assessment/Plan: -Monitor Code(s): I10 - ESSENTIAL (PRIMARY) HYPERTENSION
[2017-07-07 08:29] LABS: BASO % 0.5 % (0-2.0); EOS % 4.2 % (0-4.5); HEMATOCRIT 36.2 % (35.4-49); HEMOGLOBIN 12.5 GM/dL (11.7-16.9); LYMPH % 10.9 % (8-40); MCH 30.8 pg (25.7-33.7); MCHC 34.7 g/dl (32.0-35.9); MEAN PLT VOLUME 7.8 fl (7.5-11.1); MONO % 5.3 % (3.8-10.2); NEUT % 79.1 % (42.8-82.8); PLATELET COUNT 218 K/MM3 (134-434); RBC 4.06 M/mm3 (4.00-5.60); WHITE BLOOD COUNT 10.4 K/mm3 (4.0-10.0)
[2017-07-07] MEDS ORDERED: methylPREDNISolone NA SUCC 125 MG/2 ML VIAL ONE (08:55)
[2017-07-07] MEDS ORDERED: PT OWN MED DRAWER 7, Y5N ONE (08:56)
--- NOTE | 2017-07-07 08:56 | PN ---
Progress Note, Physician Chief Complaint: ID SOB major complaint no fever - Current Medication List Current Medications: Active Medications Acetaminophen (Tylenol -) 500 mg PO Q6H PRN PRN Reason: PAIN LEVEL 1-5 Albuterol/Ipratropium (Duoneb -) 1 amp NEB RQID [facility] Atorvastatin Calcium (Lipitor -) 40 mg PO HS [facility] Last Admin: 07/06/17 23:33 Dose: Not Given Furosemide (Lasix Injection -) 40 mg IVPUSH DAILY [facility] Last Admin: 07/06/17 15:32 Dose: 40 mg Heparin Sodium (Porcine) (Heparin -) 5,000 unit SQ BID [facility] Last Admin: 07/06/17 23:33 Dose: Not Given Ibuprofen (Motrin -) 600 mg PO PRN PRN PRN Reason: PAIN Methylprednisolone Sodium Succinate (Solu-Medrol -) 40 mg IVPUSH Q6H-IV [facility] Oxycodone/Acetaminophen (Percocet 5/325 -) 1 combo PO PRN PRN PRN Reason: BACK PAIN Pantoprazole Sodium (Protonix -) 20 mg PO DAILY [facility] Potassium Chloride (K-Dur -) 20 meq PO DAILY [facility] Venlafaxine HCl (Effexor Xr -) 150 mg PO DAILY [facility] - Objective Vital Signs: Vital Signs Temperature 98.1 F 07/07/17 07:00 Pulse Rate 91 H 07/07/17 07:00 Respiratory Rate 20 07/07/17 07:00 Blood Pressure 143/73 07/07/17 07:00 O2 Sat by Pulse Oximetry (%) 95 07/07/17 01:00 Constitutional: Yes: No Distress HENT: Yes: Normocephalic Cardiovascular: Yes: Regular Rate and Rhythm Respiratory: Yes: CTA Bilaterally, Diminished, Wheezes Gastrointestinal: Yes: Soft. No: Tenderness Edema: No Labs: CBC, BMP 07/07/17 08:00 Problem List - Problems (1) Adenocarcinoma, lung Code(s): C34.90 - MALIGNANT NEOPLASM OF UNSP PART OF UNSP BRONCHUS OR LUNG (2) Pneumonia Code(s): J18.9 - PNEUMONIA, UNSPECIFIED ORGANISM Qualifiers: Pneumonia type: due to unspecified organism Laterality: left Lung location: unspecified part of lung (3) COPD (chronic obstructive pulmonary disease) Code(s): J44.9 - CHRONIC OBSTRUCTIVE PULMONARY DISEASE, UNSPECIFIED Assessment/Plan Microbiology Laboratory Tests 07/06/17 07/06/17 07/06/17 13:53 13:53 16:35 WBC 12.8 H D Hgb 11.9 Hct Plt Count 194 BUN 15 D Creatinine 0.7 Ur Leukocyte Esterase Negative 07/07/17 08:00 WBC 10.4 H Hgb 12.5 Hct 36.2 Plt Count 218 BUN Creatinine Ur Leukocyte Esterase Assessment Adenocarcinoma of the lung metastatic brain Pneumonia ? post obstructive COPD exacerbation Plan Blood cultures Steroids Inocente Molina MD
[2017-07-07] MEDS ORDERED: ALBUTEROL SO4 2.5/IPRATROPIUM 0.5 INH SOL 3 ML VIAL.NEB. NEB ONE (09:03)
[2017-07-07] MEDS: FUROSEMIDE 40 MG/4 ML INJECTABLE VIAL IVPUSH SCH (09:04)
[2017-07-07] MEDS: POTASSIUM CHLORIDE TABS 20 MEQ TABLET.ER (FP) PO SCH (09:04)
[2017-07-07] MEDS: PANTOPRAZOLE 20 MG TABLET (FP) PO SCH (09:04)
[2017-07-07] MEDS: HEPARIN NA (PORCINE) 5,000 UNITS/ML 1ML VIAL SQ SCH ×2 (09:04→22:29)
[2017-07-07 09:09] LABS: ALBUMIN 2.8 g/dl (3.4-5.0); CALCIUM 8.3 mg/dL (8.5-10.1); CO2 29 mmol/L (21-32); GLUCOSE,RANDOM 119 mg/dL (74-106)
[2017-07-07] MEDS: methylPREDNISolone NA SUCC 40 MG/1 ML VIAL IVPUSH SCH ×3 (09:09→22:15)
[2017-07-07 09:10] LABS: BLOOD UREA NITROGEN 14 mg/dL (7-18)
[2017-07-07 09:12] LABS: ALK PHOS 120 U/L (45-117); BILIRUBIN,TOTAL 0.6 mg/dL (0.2-1.0); CREATININE 0.6 mg/dL (0.7-1.3); SGOT/AST 26 U/L (15-37); SGPT/ALT 42 U/L (12-78); TOT PROT 6.1 g/dl (6.4-8.2)
[2017-07-07] MEDS ORDERED: DEXTROSE 5%-WATER 100 ML IVPB ONE ×2 (09:28→17:01)
[2017-07-07] MEDS ORDERED: PIPERACILLIN/TAZOBACTAM 4.5 GM VIAL IVPB ONE ×2 (09:28→17:01)
[2017-07-07] MEDS: PIPERACILLIN/TAZOB 4.5 GM 4.5 GM in DEXTROSE 5%-WATER 100 ML IVPB SCH ×2 (09:42→17:37)
[2017-07-07 10:01] LABS: URINE APPEARANCE CLOUDY; URINE BILIRUBIN NEGATIVE (<2.0 mg/dL); URINE BLOOD NEGATIVE (NEGATIVE); URINE COLOR YELLOW; URINE GLUCOSE (UA) NEGATIVE (NEGATIVE); URINE KETONE NEGATIVE (NEGATIVE); URINE LEUK ESTERASE NEGATIVE (NEGATIVE); URINE NITRITE NEGATIVE (NEGATIVE); URINE PROTEIN NEGATIVE (NEGATIVE); URINE UROBILINOGEN 4.0 E.U/dl mg/dL (0.2-1.0)
--- NOTE | 2017-07-07 10:15 | CONS ---
INFECTIOUS DISEASE CONSULTATION DATE OF CONSULTATION: DATE OF DICTATION: 07/07/2017 HISTORY OF PRESENT ILLNESS: This is a 71-year-old male, originally from [facility], whom I am asked to see after he was admitted with chief complaints of worsening shortness of breath. The patient has a known diagnosis of adenocarcinoma of the lung and has metastatic brain lesions. He denied any fever or chills on admission, but his x-ray showed adenopathy with left-sided infiltrate and small pericardial effusion. The patient is a poor historian. He is apparently known to Dr. Miller, but at this time I am unaware as to whether or not he may have received radiation and/or chemotherapy recently. I am in the process of contacting Oncology for these details. Blood cultures were obtained and he was empirically begun on ceftriaxone. PAST MEDICAL HISTORY: Includes hyperlipidemia, depression, lung cancer, pneumothorax, fracture of the lower extremity, prior CO. CURRENT MEDICATIONS: Solu-Medrol, Effexor, DuoNeb, Lipitor, Lasix, Motrin, Percocet, Protonix. ALLERGIES: None known. SOCIAL HISTORY: Former smoker. Denies alcohol use. Poor historian. FAMILY HISTORY: Unable to provide. REVIEW OF SYSTEMS: Respiratory: Shortness of breath. Denies chest pain, cough. Cardiac: No chest pain, palpitations, syncope. Gastrointestinal: No abdominal pain, nausea, vomiting, diarrhea. Genitourinary: No dysuria, hematuria, urinary frequency. PHYSICAL EXAMINATION: General: He was an alert male who appeared in [id number] respiratory distress. Vital signs: The temperature was 98.1, pulse 91, blood pressure 143/73, respirations 20. Neck: Supple with no adenopathy. Lungs: With diminished breath sounds bilaterally and anterior expiratory wheezing. Heart: S1, S2. Regular rhythm without murmur or gallop. Abdomen: Soft, nontender, without hepatosplenomegaly. Extremities: Without clubbing, cyanosis or edema. LABORATORIES: The white count is 12.8, hemoglobin 11.9, platelets 194; polys 87%, lymphs 8, monos 5. BUN 15, creatinine 0.7. Liver enzymes within normal limits. Albumin 2.9. Urinalysis: Negative leukocyte esterase. Two sets of blood cultures currently pending. IMAGING: CAT scan of the chest with contrast shows extensive mediastinal adenopathy, healed fracture of the [id number] sternal body, evidence of cirrhosis, and confluent opacities within the left lingula and left lower lobe. ASSESSMENT: A 71-year-old male with smoking and chronic obstructive pulmonary disease history, known adenocarcinoma of the lung, brain metastasis, presents with confusion, along with respiratory distress, expiratory wheezing for which he is now on corticosteroids. X-ray shows confluent opacity left lung, which may represent either his tumor and/or a post-obstructive pneumonitis. PLAN: Will attempt to obtain further details regarding patient's oncology management. Continue current therapy for post-obstructive pneumonia with Zosyn. Blood cultures. Corticosteroids and legionella urinary antigen. PIYUSH FUCHS M.D. [id number]
--- NOTE | 2017-07-07 10:37 | CON.PULM ---
Consult Consult Specialty:: PULM/CCM Referred by:: XIN Reason for Consultation:: SOB - History of Present Illness Chief Complaint: SOB x 5 days History of Present Illness: 71 M, known advanced lung Adenocarcinoma (moderately to poorly differentiated/ undifferentiated), HTN, HLD, CAD h/o [place], past smoker, and COPD. 5 days of progressive congested cough and SOB/ZABALA. No hemoptysis. No travel history or sick contacts. CTA: no PE / extensive infiltrates/consolidations on the left - History Source History Provided By: Patient Limitations to Obtaining History: No Limitations - Past Medical History Cardio/Vascular: Yes: HTN, Hyperlipdemia. No: AFIB, CAD, CHF Pulmonary: Yes: COPD - Past Surgical History Past Surgical History: Yes: None - Alcohol/Substance Use Hx Alcohol Use: No - Smoking History Smoking history: Former smoker Have you smoked in the past 12 months: Yes Aproximately how many cigarettes per day: 10 - Social History ADL: Independent History of Recent Travel: No Home Medications - Allergies Allergies/Adverse Reactions: Allergies Allergy/AdvReac Type Severity Reaction Status Date / Time No Known Allergies Allergy Verified 07/06/17 12:46 - Home Medications Home Medications: Ambulatory Orders Atorvastatin Ca [Lipitor] 40 mg PO HS 12/27/16 Ibuprofen [Motrin -] 600 mg PO PRN PRN 12/27/16 Oxycodone HCl/Acetaminophen [Percocet 5-325 mg Tablet] 1 tablet PO PRN PRN 12/27 Pantoprazole Sodium [Protonix -] 20 mg PO DAILY 12/27/16 Zolpidem Tartrate 10 mg PO HS 12/27/16 Acetaminophen [Tylenol .Extra-Strength -] 500 mg PO Q6H PRN 12/28/16 Venlafaxine HCl ER [Effexor Xr -] 150 mg PO DAILY 12/28/16 Review of Systems - Review of Systems Constitutional: reports: Fever, Malaise, Weakness. denies: Chills, Night Sweats Eyes: reports: No Symptoms HENT: reports: No Symptoms Neck: reports: No Symptoms Cardiovascular: reports: Shortness of Breath. denies: Chest Pain, Edema, Palpitations Respiratory: reports: Cough, Snoring, SOB, SOB on Exertion, Wheezing. denies: Hemoptysis, Orthopnea Gastrointestinal: reports: No Symptoms Genitourinary: reports: No Symptoms Breasts: reports: No Symptoms Reported Musculoskeletal: reports: No Symptoms Integumentary: reports: No Symptoms Neurological: reports: No Symptoms Endocrine: reports: No Symptoms Hematology/Lymphatic: reports: No Symptoms Psychiatric: reports: No Symptoms Physical Exam Vital Sings: Vital Signs Temperature 98.1 F 07/07/17 07:00 Pulse Rate 91 H 07/07/17 07:00 Respiratory Rate 20 07/07/17 07:00 Blood Pressure 143/73 07/07/17 07:00 O2 Sat by Pulse Oximetry (%) 95 07/07/17 01:00 Constitutional: Yes: No Distress Eyes: Yes: Conjunctiva Clear, EOM Intact HENT: Yes: Atraumatic, Normocephalic Neck: Yes: Supple, Trachea Midline Cardiovascular: Yes: Regular Rate and Rhythm Respiratory: Yes: Cough, Diminished, On Nasal O2, Rhonchi, SOB, Wheezes. No: Accessory Muscle Use, Rales, Stridor, Tachypnea ...Inspection: Yes: WNL ...Clubbing: No Gastrointestinal: Yes: Normal Bowel Sounds, Soft Renal/: Yes: WNL Musculoskeletal: Yes: WNL Extremities: Yes: WNL Edema: No Peripheral Pulses WNL: Yes Integumentary: Yes: WNL Neurological: Yes: WNL, Alert, Oriented ...Motor Strength: WNL Psychiatric: Yes: WNL, Alert, Oriented Labs: CBC, BMP 07/07/17 08:00 07/07/17 08:00 Imaging - Results Chest X-ray: Report Reviewed, Image Reviewed Cat Scan: Report Reviewed, Image Reviewed Problem List - Problems (1) Adenocarcinoma, lung Code(s): C34.90 - MALIGNANT NEOPLASM OF UNSP PART OF UNSP BRONCHUS OR LUNG (2) COPD (chronic obstructive pulmonary disease) Code(s): J44.9 - CHRONIC OBSTRUCTIVE PULMONARY DISEASE, UNSPECIFIED (3) Pneumonia Code(s): J18.9 - PNEUMONIA, UNSPECIFIED ORGANISM Qualifiers: Pneumonia type: due to unspecified organism Laterality: left Lung location: unspecified part of lung Qualified Code(s): J18.9 - Pneumonia, unspecified organism (4) Dyspnea Code(s): R06.00 - DYSPNEA, UNSPECIFIED (5) HTN (hypertension) Code(s): I10 - ESSENTIAL (PRIMARY) HYPERTENSION (6) Hypercholesteremia Code(s): E78.00 - PURE HYPERCHOLESTEROLEMIA, UNSPECIFIED (7) Mass of left lung Code(s): R91.8 - OTHER NONSPECIFIC ABNORMAL FINDING OF LUNG FIELD Assessment/Plan (?) Lymphangitic spread of CA based on CT findings Suspected Post-obstructive PNA Do not suspect volume overload / CHF ABX Per ID Sputum cultures Medrol BD TX O2 as needed to maintain saturation VTE prophylaxis No smoking ECHO Will follow Dr Mcneill
[2017-07-07] MEDS: VENLAFAXINE HCL 150 MG E.R. CAPSULE PO SCH ×2 (10:40→11:15)
[2017-07-07 11:42] LABS: ANION GAP 10 (8-16); CHLORIDE 105 mmol/L (98-107); POTASSIUM 3.5 mmol/L (3.5-5.1); SODIUM 141 mmol/L (136-145)
[2017-07-07] MEDS: ALBUTEROL SO4 2.5/IPRATROPIUM 0.5 INH SOL 3 ML VIAL.NEB. NEB SCH ×3 (11:51→21:34)
--- NOTE | 2017-07-07 13:28 | EKG ---
Test Reason : Blood Pressure : / mmHG Vent. Rate : 104 BPM Atrial Rate : 104 BPM P-R Int : 130 ms QRS Dur : 084 ms QT Int : 336 ms P-R-T Axes : 043 -35 026 degrees QTc Int : 441 ms SINUS TACHYCARDIA LEFT AXIS DEVIATION LOW VOLTAGE QRS CANNOT RULE OUT ANTERIOR INFARCT , AGE UNDETERMINED ABNORMAL ECG NO PREVIOUS ECGS AVAILABLE Confirmed by RUDY MAC MD ([id number]) on 07/07/2017 1:28:40 PM Referred By: Confirmed By:RUDY MAC MD
--- NOTE | 2017-07-07 15:30 | PN ---
Progress Note (short form) - Note Progress Note: Patient seen and examined. Chart reviewed. Patient with advanced lung adeno(PDL1 >90%) , had brain mets. Was recently( early june ) at [facility] where he completed his WBRT. He did not follow-up for treatments as scheduled. Pt presented to the ER with SOB. Pt also with HepC Poor historian O/E: General: In mild distress, poor hygiene HEENT: NCAT Cor: RRR Lungs: Diminished breath sounds Abd: NT ND Extremities: no cce Skin: not intact Last Vital Signs Temp Pulse Resp BP Pulse Ox 98.1 F 72 20 112/60 100 07/07/17 07:00 07/07/17 09:00 07/07/17 09:00 07/07/17 09:00 07/07/17 09:00 CBC, BMP 07/07/17 08:00 07/07/17 08:00 Current Medications Generic Name Dose Route Start Last Admin Trade Name Freq PRN Reason Stop Dose Admin Acetaminophen 500 mg 07/06/17 15:13 Tylenol - PO Q6H PRN PAIN LEVEL 1-5 Albuterol/Ipratropium 1 amp 07/07/17 12:00 07/07/17 11:51 Duoneb - NEB 1 amp RQID [facility]ENK[facility] Administration Atorvastatin Calcium 40 mg 07/06/17 22:00 07/06/17 23:33 Lipitor - PO Not Given HS [facility] Furosemide 40 mg 07/07/17 10:00 07/07/17 09:04 Lasix Injection - IVPUSH 40 mg DAILY [facility] Administration Heparin Sodium (Porcine) 5,000 unit 07/06/17 22:00 07/07/17 09:04 Heparin - SQ 5,000 unit BID [facility] Administration Piperacillin Sod/Tazobactam 100 mls @ 200 mls/hr 07/07/17 10:00 07/07/17 09: 42 Sod 4.5 gm/ Dextrose IVPB 200 mls/hr Q8H-IV [facility] Administration Protocol Ibuprofen 600 mg 07/06/17 15:13 Motrin - PO PRN PRN PAIN Methylprednisolone Sodium Succinate 40 mg 07/07/17 09:00 07/07/17 14:54 Solu-Medrol - IVPUSH 40 mg Q6H-IV [facility] Administration Oxycodone/Acetaminophen 1 combo 07/06/17 15:13 Percocet 5/325 - PO PRN PRN BACK PAIN Pantoprazole Sodium 20 mg 07/06/17 15:15 07/07/17 09:04 Protonix - PO 20 mg DAILY [facility] Administration Potassium Chloride 20 meq 07/07/17 10:00 07/07/17 09:04 K-Dur - PO 20 meq DAILY [facility] Administration Venlafaxine HCl 150 mg 07/06/17 15:15 07/07/17 11:15 Effexor Xr - PO 150 mg DAILY [facility] Administration Advanced lung adeno with brain mets s/p completion of WBRT. Pt seen by couple of oncologists in the past few months and did not commit for treatment(immunotherapy) despite multiple calls and follow-up made. Presently, with worsening SOB, likely Progression of cancer, also poor performance status. Did not see much of a fluid to be drained to help his SOB. Supportive care/steroids/abx as needed For palliative care consult seen in pt care notes that working for [facility] admission. d/Sally.Jonas/paras/lexi RICHARDS
[2017-07-07] MEDS: ATORVASTATIN CA 40 MG TABLET (FP) PO SCH (22:00)
[2017-07-08] MEDS: MELATONIN 5 MG TABLETS PO PRN (00:32)
[2017-07-08] MEDS ORDERED: PIPERACILLIN/TAZOBACTAM 4.5 GM VIAL IVPB ONE ×3 (00:59→16:41)
[2017-07-08] MEDS ORDERED: DEXTROSE 5%-WATER 100 ML IVPB ONE ×3 (01:00→16:41)
[2017-07-08] MEDS: PIPERACILLIN/TAZOB 4.5 GM 4.5 GM in DEXTROSE 5%-WATER 100 ML IVPB SCH ×3 (01:36→17:16)
[2017-07-08] MEDS: methylPREDNISolone NA SUCC 40 MG/1 ML VIAL IVPUSH SCH ×4 (04:01→21:19)
[2017-07-08] MEDS: ALBUTEROL SO4 2.5/IPRATROPIUM 0.5 INH SOL 3 ML VIAL.NEB. NEB SCH ×4 (07:25→21:40)
--- NOTE | 2017-07-08 08:31 | PN ---
Progress Note, Physician Chief Complaint: ID Marked improvement today Appears confused ? brain mets steroids both Vanco 1 dose Zosyn day 2 - Current Medication List Current Medications: Active Medications Acetaminophen (Tylenol -) 500 mg PO Q6H PRN PRN Reason: PAIN LEVEL 1-5 Albuterol/Ipratropium (Duoneb -) 1 amp NEB RQID [facility] Last Admin: 07/08/17 07:25 Dose: 1 amp Atorvastatin Calcium (Lipitor -) 40 mg PO HS [facility] Last Admin: 07/07/17 22:00 Dose: 40 mg Furosemide (Lasix Injection -) 40 mg IVPUSH DAILY [facility] Last Admin: 07/07/17 09:04 Dose: 40 mg Heparin Sodium (Porcine) (Heparin -) 5,000 unit SQ BID [facility] Last Admin: 07/07/17 22:29 Dose: Not Given Piperacillin Sod/Tazobactam (Sod 4.5 gm/ Dextrose) 100 mls @ 200 mls/hr IVPB Q8H-IV [facility]; Protocol Last Admin: 07/08/17 01:36 Dose: 200 mls/hr Ibuprofen (Motrin -) 600 mg PO PRN PRN PRN Reason: PAIN Melatonin (Melatonin) 5 mg PO HS PRN PRN Reason: INSOMNIA Last Admin: 07/08/17 00:32 Dose: 5 mg Methylprednisolone Sodium Succinate (Solu-Medrol -) 40 mg IVPUSH Q6H-IV [facility] Last Admin: 07/08/17 04:01 Dose: 40 mg Oxycodone/Acetaminophen (Percocet 5/325 -) 1 combo PO PRN PRN PRN Reason: BACK PAIN Pantoprazole Sodium (Protonix -) 20 mg PO DAILY [facility] Last Admin: 07/07/17 09:04 Dose: 20 mg Potassium Chloride (K-Dur -) 20 meq PO DAILY [facility] Last Admin: 07/07/17 09:04 Dose: 20 meq Venlafaxine HCl (Effexor Xr -) 150 mg PO DAILY [facility] - Objective Vital Signs: Vital Signs Temperature 98.4 F 07/08/17 06:00 Pulse Rate 88 07/08/17 06:00 Respiratory Rate 18 07/08/17 06:00 Blood Pressure 128/89 07/08/17 06:00 O2 Sat by Pulse Oximetry (%) 100 07/07/17 09:00 Constitutional: Yes: No Distress Neck: Yes: WNL, Supple Cardiovascular: Yes: S1, S2 Respiratory: Yes: WNL, Regular, CTA Bilaterally Gastrointestinal: Yes: WNL, Normal Bowel Sounds. No: Tenderness, Tenderness, Epigastrium Edema: No Labs: CBC, BMP 07/07/17 08:00 07/07/17 08:00 Problem List - Problems (1) Adenocarcinoma, lung Code(s): C34.90 - MALIGNANT NEOPLASM OF UNSP PART OF UNSP BRONCHUS OR LUNG (2) Pneumonia Code(s): J18.9 - PNEUMONIA, UNSPECIFIED ORGANISM Qualifiers: Pneumonia type: due to unspecified organism Laterality: left Lung location: unspecified part of lung Qualified Code(s): J18.9 - Pneumonia, unspecified organism (3) COPD (chronic obstructive pulmonary disease) Code(s): J44.9 - CHRONIC OBSTRUCTIVE PULMONARY DISEASE, UNSPECIFIED Assessment/Plan Microbiology 07/06/17 11:30 Urine - Urine Clean Catch Legionella Antigen - Final 07/06/17 11:30 Urine - Urine Clean Catch Streptococcus pneumoniae Antigen ( M - Final 07/06/17 16:36 Blood - Peripheral Venous Blood Culture - Preliminary NO GROWTH OBTAINED AFTER 24 HOURS, INCUBATION TO CONTINUE FOR 4 DAYS. 07/06/17 16:36 Blood - Peripheral Venous Blood Culture - Preliminary NO GROWTH OBTAINED AFTER 24 HOURS, INCUBATION TO CONTINUE FOR 4 DAYS. Laboratory Tests 07/06/17 07/06/17 07/07/17 13:53 17:36 08:00 WBC 12.8 H D 10.4 H Hgb 12.5 Plt Count 218 HIV 1&2 Antibody Screen Negative HIV P24 Antigen Negative Assessment Metastatic adenocarcinoma fo the lung ? post obstructive PNA and or lymphangitis spread tumor with exacerbation COPD Plan Continue current therapy with considertion of changing to oral therapy given his poor prognosis perhaps tommorrow Will defer to Dr Mcdaniel here and Dr Mcneill ? Augmentin 874 bid Jesse FORMAN
[2017-07-08] MEDS: PANTOPRAZOLE 20 MG TABLET (FP) PO SCH (09:40)
[2017-07-08] MEDS: HEPARIN NA (PORCINE) 5,000 UNITS/ML 1ML VIAL SQ SCH ×2 (09:41→21:19)
[2017-07-08] MEDS: FUROSEMIDE 40 MG/4 ML INJECTABLE VIAL IVPUSH SCH (09:41)
[2017-07-08] MEDS: POTASSIUM CHLORIDE TABS 20 MEQ TABLET.ER (FP) PO SCH (09:41)
[2017-07-08] MEDS: VENLAFAXINE HCL 75 MG E.R. CAPSULES (FP) PO SCH (09:41)
--- NOTE | 2017-07-08 10:59 | PN ---
Progress Note, Physician Chief Complaint: Adenocarcinoma of the lung Metastatic brain Ca History of Present Illness: NAD, pleasantly confused seen by ID IV abx for today and then d/c on oral abx augmentin BID - Current Medication List Current Medications: Active Medications Acetaminophen (Tylenol -) 500 mg PO Q6H PRN PRN Reason: PAIN LEVEL 1-5 Albuterol/Ipratropium (Duoneb -) 1 amp NEB RQID [facility] Last Admin: 07/08/17 07:25 Dose: 1 amp Atorvastatin Calcium (Lipitor -) 40 mg PO HS [facility] Last Admin: 07/07/17 22:00 Dose: 40 mg Furosemide (Lasix Injection -) 40 mg IVPUSH DAILY [facility] Last Admin: 07/08/17 09:41 Dose: 40 mg Heparin Sodium (Porcine) (Heparin -) 5,000 unit SQ BID [facility] Last Admin: 07/08/17 09:41 Dose: 5,000 unit Piperacillin Sod/Tazobactam (Sod 4.5 gm/ Dextrose) 100 mls @ 200 mls/hr IVPB Q8H-IV [facility]; Protocol Last Admin: 07/08/17 09:47 Dose: 200 mls/hr Ibuprofen (Motrin -) 600 mg PO PRN PRN PRN Reason: PAIN Melatonin (Melatonin) 5 mg PO HS PRN PRN Reason: INSOMNIA Last Admin: 07/08/17 00:32 Dose: 5 mg Methylprednisolone Sodium Succinate (Solu-Medrol -) 40 mg IVPUSH Q6H-IV [facility] Last Admin: 07/08/17 09:40 Dose: 40 mg Oxycodone/Acetaminophen (Percocet 5/325 -) 1 combo PO PRN PRN PRN Reason: BACK PAIN Pantoprazole Sodium (Protonix -) 20 mg PO DAILY [facility] Last Admin: 07/08/17 09:40 Dose: 20 mg Potassium Chloride (K-Dur -) 20 meq PO DAILY [facility] Last Admin: 07/08/17 09:41 Dose: 20 meq Venlafaxine HCl (Effexor Xr -) 150 mg PO DAILY [facility] Last Admin: 07/08/17 09:41 Dose: 150 mg - Objective Vital Signs: Vital Signs Temperature 98.4 F 07/08/17 10:00 Pulse Rate 96 H 07/08/17 10:00 Respiratory Rate 17 07/08/17 10:00 Blood Pressure 137/80 07/08/17 10:00 O2 Sat by Pulse Oximetry (%) 96 07/08/17 09:00 Constitutional: Yes: Well Nourished, No Distress, Calm Cardiovascular: Yes: Regular Rate and Rhythm Respiratory: Yes: Regular Neurological: Yes: Alert, Pre-Existing Deficit Psychiatric: Yes: Alert Labs: CBC, BMP 07/07/17 08:00 07/07/17 08:00 Problem List - Problems (1) Adenocarcinoma, lung Assessment/Plan: -Oncology on board -was receiving RT outpatient -Possible [place] transfer, awaiting acceptance Code(s): C34.90 - MALIGNANT NEOPLASM OF UNSP PART OF UNSP BRONCHUS OR LUNG (2) COPD (chronic obstructive pulmonary disease) Assessment/Plan: -Nasal O2 -Bronchodilators -Pulmonary on board Code(s): J44.9 - CHRONIC OBSTRUCTIVE PULMONARY DISEASE, UNSPECIFIED (3) Pneumonia Assessment/Plan: -IV abx -Seen by ID, may switch to PO tomorrow augmentin BID Code(s): J18.9 - PNEUMONIA, UNSPECIFIED ORGANISM Qualifiers: Pneumonia type: due to unspecified organism Laterality: left Lung location: unspecified part of lung Qualified Code(s): J18.9 - Pneumonia, unspecified organism Assessment/Plan see problem list DVT prophylaxis Palliative care
--- NOTE | 2017-07-08 14:02 | PN ---
Progress Note, Physician History of Present Illness: PULMONARY ALERT,FEELING BETTER,DYSPNEA IMPROVING,-CP,-COUGH - Current Medication List Current Medications: Active Medications Acetaminophen (Tylenol -) 500 mg PO Q6H PRN PRN Reason: PAIN LEVEL 1-5 Albuterol/Ipratropium (Duoneb -) 1 amp NEB RQID [facility] Last Admin: 07/08/17 11:31 Dose: 1 amp Atorvastatin Calcium (Lipitor -) 40 mg PO HS [facility] Last Admin: 07/07/17 22:00 Dose: 40 mg Furosemide (Lasix Injection -) 40 mg IVPUSH DAILY [facility] Last Admin: 07/08/17 09:41 Dose: 40 mg Heparin Sodium (Porcine) (Heparin -) 5,000 unit SQ BID [facility] Last Admin: 07/08/17 09:41 Dose: 5,000 unit Piperacillin Sod/Tazobactam (Sod 4.5 gm/ Dextrose) 100 mls @ 200 mls/hr IVPB Q8H-IV [facility]; Protocol Last Admin: 07/08/17 09:47 Dose: 200 mls/hr Ibuprofen (Motrin -) 600 mg PO PRN PRN PRN Reason: PAIN Melatonin (Melatonin) 5 mg PO HS PRN PRN Reason: INSOMNIA Last Admin: 07/08/17 00:32 Dose: 5 mg Methylprednisolone Sodium Succinate (Solu-Medrol -) 40 mg IVPUSH Q6H-IV [facility] Last Admin: 07/08/17 09:40 Dose: 40 mg Oxycodone/Acetaminophen (Percocet 5/325 -) 1 combo PO PRN PRN PRN Reason: BACK PAIN Pantoprazole Sodium (Protonix -) 20 mg PO DAILY [facility] Last Admin: 07/08/17 09:40 Dose: 20 mg Potassium Chloride (K-Dur -) 20 meq PO DAILY [facility] Last Admin: 07/08/17 09:41 Dose: 20 meq Venlafaxine HCl (Effexor Xr -) 150 mg PO DAILY [facility] Last Admin: 07/08/17 09:41 Dose: 150 mg - Objective Vital Signs: Vital Signs Temperature 98.4 F 07/08/17 10:00 Pulse Rate 96 H 07/08/17 10:00 Respiratory Rate 17 07/08/17 10:00 Blood Pressure 137/80 07/08/17 10:00 O2 Sat by Pulse Oximetry (%) 96 07/08/17 09:00 Constitutional: Yes: Well Nourished, Calm Eyes: Yes: WNL HENT: Yes: WNL Neck: Yes: WNL Cardiovascular: Yes: Regular Rate and Rhythm, S1, S2 Respiratory: Yes: Wheezes (FEW SCATTERED JAE WHEEZES) Gastrointestinal: Yes: Normal Bowel Sounds, Soft Extremities: Yes: WNL Edema: No Labs: CBC, BMP 07/07/17 08:00 07/07/17 08:00 Assessment/Plan Problem List - Problems (1) Adenocarcinoma, lung Code(s): C34.90 - MALIGNANT NEOPLASM OF UNSP PART OF UNSP BRONCHUS OR LUNG (2) COPD (chronic obstructive pulmonary disease) Code(s): J44.9 - CHRONIC OBSTRUCTIVE PULMONARY DISEASE, UNSPECIFIED (3) Pneumonia Code(s): J18.9 - PNEUMONIA, UNSPECIFIED ORGANISM Qualifiers: Pneumonia type: due to unspecified organism Laterality: left Lung location: unspecified part of lung Qualified Code(s): J18.9 - Pneumonia, unspecified organism (4) Dyspnea Code(s): R06.00 - DYSPNEA, UNSPECIFIED (5) HTN (hypertension) Code(s): I10 - ESSENTIAL (PRIMARY) HYPERTENSION (6) Hypercholesteremia Code(s): E78.00 - PURE HYPERCHOLESTEROLEMIA, UNSPECIFIED (7) Mass of left lung Code(s): R91.8 - OTHER NONSPECIFIC ABNORMAL FINDING OF LUNG FIELD Assessment/Plan (?) Lymphangitic spread of CA based on CT findings Suspected Post-obstructive PNA Do not suspect volume overload / CHF ABX Per ID Medrol taper BD TX O2 VTE prophylaxis No smoking DR NGUYEN
[2017-07-08] MEDS: ATORVASTATIN CA 40 MG TABLET (FP) PO SCH (21:19)
[2017-07-09] MEDS ORDERED: PIPERACILLIN/TAZOBACTAM 4.5 GM VIAL IVPB ONE ×3 (01:21→17:10)
[2017-07-09] MEDS ORDERED: DEXTROSE 5%-WATER 100 ML IVPB ONE ×3 (01:21→17:11)
[2017-07-09] MEDS: PIPERACILLIN/TAZOB 4.5 GM 4.5 GM in DEXTROSE 5%-WATER 100 ML IVPB SCH ×3 (02:00→17:25)
[2017-07-09] MEDS: methylPREDNISolone NA SUCC 40 MG/1 ML VIAL IVPUSH SCH ×4 (02:43→21:26)
[2017-07-09] MEDS: ALBUTEROL SO4 2.5/IPRATROPIUM 0.5 INH SOL 3 ML VIAL.NEB. NEB SCH ×4 (07:30→21:11)
--- NOTE | 2017-07-09 09:09 | PN ---
Progress Note, Physician History of Present Illness: pulmonary alert,comfortable,oob-chair,-resp distress - Current Medication List Current Medications: Active Medications Acetaminophen (Tylenol -) 500 mg PO Q6H PRN PRN Reason: PAIN LEVEL 1-5 Albuterol/Ipratropium (Duoneb -) 1 amp NEB RQID [facility] Last Admin: 07/09/17 07:30 Dose: 1 amp Atorvastatin Calcium (Lipitor -) 40 mg PO HS [facility] Last Admin: 07/08/17 21:19 Dose: 40 mg Furosemide (Lasix Injection -) 40 mg IVPUSH DAILY [facility] Last Admin: 07/08/17 09:41 Dose: 40 mg Heparin Sodium (Porcine) (Heparin -) 5,000 unit SQ BID [facility] Last Admin: 07/08/17 21:19 Dose: 5,000 unit Piperacillin Sod/Tazobactam (Sod 4.5 gm/ Dextrose) 100 mls @ 200 mls/hr IVPB Q8H-IV [facility]; Protocol Last Admin: 07/09/17 02:00 Dose: 200 mls/hr Ibuprofen (Motrin -) 600 mg PO PRN PRN PRN Reason: PAIN Melatonin (Melatonin) 5 mg PO HS PRN PRN Reason: INSOMNIA Last Admin: 07/08/17 00:32 Dose: 5 mg Methylprednisolone Sodium Succinate (Solu-Medrol -) 40 mg IVPUSH Q6H-IV [facility] Last Admin: 07/09/17 02:43 Dose: 40 mg Oxycodone/Acetaminophen (Percocet 5/325 -) 1 combo PO PRN PRN PRN Reason: BACK PAIN Pantoprazole Sodium (Protonix -) 20 mg PO DAILY [facility] Last Admin: 07/08/17 09:40 Dose: 20 mg Potassium Chloride (K-Dur -) 20 meq PO DAILY [facility] Last Admin: 07/08/17 09:41 Dose: 20 meq Venlafaxine HCl (Effexor Xr -) 150 mg PO DAILY [facility] Last Admin: 07/08/17 09:41 Dose: 150 mg - Objective Vital Signs: Vital Signs Temperature 98 F 07/09/17 07:23 Pulse Rate 92 H 07/09/17 07:23 Respiratory Rate 18 07/09/17 07:23 Blood Pressure 133/78 07/09/17 07:23 O2 Sat by Pulse Oximetry (%) 99 07/08/17 21:00 Constitutional: Yes: Well Nourished, Calm Eyes: Yes: WNL HENT: Yes: WNL Neck: Yes: WNL Cardiovascular: Yes: Regular Rate and Rhythm, S1, S2 Respiratory: Yes: Diminished, Rhonchi (few rhonchi) Gastrointestinal: Yes: Normal Bowel Sounds, Soft Extremities: Yes: WNL Edema: No Labs: Assessment/Plan Problem List - Problems (1) Adenocarcinoma, lung Code(s): C34.90 - MALIGNANT NEOPLASM OF UNSP PART OF UNSP BRONCHUS OR LUNG (2) COPD (chronic obstructive pulmonary disease) Code(s): J44.9 - CHRONIC OBSTRUCTIVE PULMONARY DISEASE, UNSPECIFIED (3) Pneumonia Code(s): J18.9 - PNEUMONIA, UNSPECIFIED ORGANISM Qualifiers: Pneumonia type: due to unspecified organism Laterality: left Lung location: unspecified part of lung Qualified Code(s): J18.9 - Pneumonia, unspecified organism (4) Dyspnea Code(s): R06.00 - DYSPNEA, UNSPECIFIED (5) HTN (hypertension) Code(s): I10 - ESSENTIAL (PRIMARY) HYPERTENSION (6) Hypercholesteremia Code(s): E78.00 - PURE HYPERCHOLESTEROLEMIA, UNSPECIFIED (7) Mass of left lung Code(s): R91.8 - OTHER NONSPECIFIC ABNORMAL FINDING OF LUNG FIELD Assessment/Plan (?) Lymphangitic spread of CA based on CT findings Suspected Post-obstructive PNA Do not suspect volume overload / CHF ABX Per ID Medrol BD TX O2 VTE prophylaxis No smoking DR NGUYEN
--- NOTE | 2017-07-09 09:11 | PN ---
Progress Note, Physician - Current Medication List Current Medications: Active Medications Acetaminophen (Tylenol -) 500 mg PO Q6H PRN PRN Reason: PAIN LEVEL 1-5 Albuterol/Ipratropium (Duoneb -) 1 amp NEB RQID [facility] Last Admin: 07/09/17 07:30 Dose: 1 amp Atorvastatin Calcium (Lipitor -) 40 mg PO HS [facility] Last Admin: 07/08/17 21:19 Dose: 40 mg Furosemide (Lasix Injection -) 40 mg IVPUSH DAILY [facility] Last Admin: 07/08/17 09:41 Dose: 40 mg Heparin Sodium (Porcine) (Heparin -) 5,000 unit SQ BID [facility] Last Admin: 07/08/17 21:19 Dose: 5,000 unit Piperacillin Sod/Tazobactam (Sod 4.5 gm/ Dextrose) 100 mls @ 200 mls/hr IVPB Q8H-IV [facility]; Protocol Last Admin: 07/09/17 02:00 Dose: 200 mls/hr Ibuprofen (Motrin -) 600 mg PO PRN PRN PRN Reason: PAIN Melatonin (Melatonin) 5 mg PO HS PRN PRN Reason: INSOMNIA Last Admin: 07/08/17 00:32 Dose: 5 mg Methylprednisolone Sodium Succinate (Solu-Medrol -) 40 mg IVPUSH Q6H-IV [facility] Last Admin: 07/09/17 02:43 Dose: 40 mg Oxycodone HCl (Roxicodone -) 5 mg PO Q6H PRN PRN Reason: PAIN LEVEL 6-10 Oxycodone/Acetaminophen (Percocet 5/325 -) 1 combo PO PRN PRN PRN Reason: BACK PAIN Pantoprazole Sodium (Protonix -) 20 mg PO DAILY [facility] Last Admin: 07/08/17 09:40 Dose: 20 mg Potassium Chloride (K-Dur -) 20 meq PO DAILY [facility] Last Admin: 07/08/17 09:41 Dose: 20 meq Venlafaxine HCl (Effexor Xr -) 150 mg PO DAILY [facility] Last Admin: 07/08/17 09:41 Dose: 150 mg - Objective Vital Signs: Vital Signs Temperature 98 F 07/09/17 07:23 Pulse Rate 92 H 07/09/17 07:23 Respiratory Rate 18 07/09/17 07:23 Blood Pressure 133/78 07/09/17 07:23 O2 Sat by Pulse Oximetry (%) 99 07/08/17 21:00 Cardiovascular: Yes: S1, S2 Respiratory: Yes: Regular, CTA Bilaterally Gastrointestinal: Yes: Normal Bowel Sounds, Soft. No: Tenderness Labs: CBC, BMP 07/07/17 08:00 07/07/17 08:00 Problem List - Problems (1) Pneumonia Code(s): J18.9 - PNEUMONIA, UNSPECIFIED ORGANISM Qualifiers: Pneumonia type: due to unspecified organism Laterality: left Lung location: unspecified part of lung Qualified Code(s): J18.9 - Pneumonia, unspecified organism (2) Adenocarcinoma, lung Code(s): C34.90 - MALIGNANT NEOPLASM OF UNSP PART OF UNSP BRONCHUS OR LUNG (3) COPD (chronic obstructive pulmonary disease) Code(s): J44.9 - CHRONIC OBSTRUCTIVE PULMONARY DISEASE, UNSPECIFIED (4) HTN (hypertension) Code(s): I10 - ESSENTIAL (PRIMARY) HYPERTENSION Assessment/Plan - Problems (1) Adenocarcinoma, lung Assessment/Plan: -Oncology on board -was receiving RT outpatient -Possible [place] transfer, awaiting acceptance Code(s): C34.90 - MALIGNANT NEOPLASM OF UNSP PART OF UNSP BRONCHUS OR LUNG (2) COPD (chronic obstructive pulmonary disease) Assessment/Plan: -Nasal O2 -Bronchodilators -Pulmonary on board Code(s): J44.9 - CHRONIC OBSTRUCTIVE PULMONARY DISEASE, UNSPECIFIED (3) Pneumonia Assessment/Plan: -IV abx -Seen by ID, may switch to PO tomorrow augmentin BID Code(s): J18.9 - PNEUMONIA, UNSPECIFIED ORGANISM Qualifiers: Pneumonia type: due to unspecified organism Laterality: left Lung location: unspecified part of lung Qualified Code(s): J18.9 - Pneumonia, unspecified organism
[2017-07-09] MEDS ORDERED: PT OWN MED DRAWER 7, Y5N ONE (09:26)
[2017-07-09] MEDS: VENLAFAXINE HCL 75 MG E.R. CAPSULES (FP) PO SCH (09:59)
[2017-07-09] MEDS: PANTOPRAZOLE 20 MG TABLET (FP) PO SCH (10:00)
[2017-07-09] MEDS: HEPARIN NA (PORCINE) 5,000 UNITS/ML 1ML VIAL SQ SCH ×2 (10:00→21:26)
[2017-07-09] MEDS: POTASSIUM CHLORIDE TABS 20 MEQ TABLET.ER (FP) PO SCH (10:00)
[2017-07-09] MEDS: FUROSEMIDE 40 MG/4 ML INJECTABLE VIAL IVPUSH SCH (10:02)
[2017-07-09] MEDS: oxyCODONE HCL 5 MG TABLET PO PRN ×2 (10:11→17:31)
[2017-07-09] MEDS: ATORVASTATIN CA 40 MG TABLET (FP) PO SCH (21:26)
[2017-07-10] MEDS ORDERED: DEXTROSE 5%-WATER 100 ML IVPB ONE ×3 (01:43→16:47)
[2017-07-10] MEDS ORDERED: PIPERACILLIN/TAZOBACTAM 4.5 GM VIAL IVPB ONE ×3 (01:43→16:46)
[2017-07-10] MEDS: PIPERACILLIN/TAZOB 4.5 GM 4.5 GM in DEXTROSE 5%-WATER 100 ML IVPB SCH ×3 (01:58→17:25)
[2017-07-10] MEDS: methylPREDNISolone NA SUCC 40 MG/1 ML VIAL IVPUSH SCH ×3 (02:50→17:21)
[2017-07-10] MEDS: ALBUTEROL SO4 2.5/IPRATROPIUM 0.5 INH SOL 3 ML VIAL.NEB. NEB SCH ×4 (07:30→20:25)
--- NOTE | 2017-07-10 09:05 | PN ---
Progress Note, Physician - Current Medication List Current Medications: Active Medications Acetaminophen (Tylenol -) 500 mg PO Q6H PRN PRN Reason: PAIN LEVEL 1-5 Albuterol/Ipratropium (Duoneb -) 1 amp NEB RQID [facility] Last Admin: 07/10/17 07:30 Dose: 1 amp Atorvastatin Calcium (Lipitor -) 40 mg PO HS [facility] Last Admin: 07/09/17 21:26 Dose: 40 mg Furosemide (Lasix Injection -) 40 mg IVPUSH DAILY [facility] Last Admin: 07/09/17 10:02 Dose: 40 mg Heparin Sodium (Porcine) (Heparin -) 5,000 unit SQ BID [facility] Last Admin: 07/09/17 21:26 Dose: 5,000 unit Piperacillin Sod/Tazobactam (Sod 4.5 gm/ Dextrose) 100 mls @ 200 mls/hr IVPB Q8H-IV [facility]; Protocol Last Admin: 07/10/17 01:58 Dose: 200 mls/hr Melatonin (Melatonin) 5 mg PO HS PRN PRN Reason: INSOMNIA Last Admin: 07/08/17 00:32 Dose: 5 mg Methylprednisolone Sodium Succinate (Solu-Medrol -) 40 mg IVPUSH Q6H-IV [facility] Last Admin: 07/10/17 02:50 Dose: 40 mg Oxycodone HCl (Roxicodone -) 5 mg PO Q6H PRN PRN Reason: PAIN LEVEL 6-10 Last Admin: 07/09/17 17:31 Dose: 5 mg Pantoprazole Sodium (Protonix -) 20 mg PO DAILY [facility] Last Admin: 07/09/17 10:00 Dose: 20 mg Potassium Chloride (K-Dur -) 20 meq PO DAILY [facility] Last Admin: 07/09/17 10:00 Dose: 20 meq Venlafaxine HCl (Effexor Xr -) 150 mg PO DAILY [facility] Last Admin: 07/09/17 09:59 Dose: 150 mg - Objective Vital Signs: Vital Signs Temperature 98.4 F 07/10/17 06:00 Pulse Rate 95 H 07/10/17 06:00 Respiratory Rate 18 07/10/17 06:00 Blood Pressure 123/80 07/10/17 06:00 O2 Sat by Pulse Oximetry (%) 97 07/09/17 21:00 Cardiovascular: Yes: S1, S2 Respiratory: Yes: Regular, CTA Bilaterally Gastrointestinal: Yes: Normal Bowel Sounds, Soft. No: Tenderness Edema: No Labs: CBC, BMP 07/07/17 08:00 07/07/17 08:00 Problem List - Problems (1) Pneumonia Code(s): J18.9 - PNEUMONIA, UNSPECIFIED ORGANISM Qualifiers: Pneumonia type: due to unspecified organism Laterality: left Lung location: unspecified part of lung Qualified Code(s): J18.9 - Pneumonia, unspecified organism (2) Adenocarcinoma, lung Code(s): C34.90 - MALIGNANT NEOPLASM OF UNSP PART OF UNSP BRONCHUS OR LUNG (3) COPD (chronic obstructive pulmonary disease) Code(s): J44.9 - CHRONIC OBSTRUCTIVE PULMONARY DISEASE, UNSPECIFIED (4) HTN (hypertension) Code(s): I10 - ESSENTIAL (PRIMARY) HYPERTENSION Assessment/Plan - Problems (1) Adenocarcinoma, lung Assessment/Plan: -Oncology on board -was receiving RT outpatient -Possible [place] transfer, awaiting acceptance Code(s): C34.90 - MALIGNANT NEOPLASM OF UNSP PART OF UNSP BRONCHUS OR LUNG (2) COPD (chronic obstructive pulmonary disease) Assessment/Plan: -Nasal O2 -Bronchodilators -Pulmonary on board Code(s): J44.9 - CHRONIC OBSTRUCTIVE PULMONARY DISEASE, UNSPECIFIED (3) Pneumonia Assessment/Plan: -IV abx -Seen by ID, may switch to PO tomorrow augmentin BID Code(s): J18.9 - PNEUMONIA, UNSPECIFIED ORGANISM Qualifiers: Pneumonia type: due to unspecified organism Laterality: left Lung location: unspecified part of lung Qualified Code(s): J18.9 - Pneumonia, unspecified organism
[2017-07-10] MEDS ORDERED: PT OWN MED DRAWER 7, Y5N ONE (09:36)
[2017-07-10] MEDS: oxyCODONE HCL 5 MG TABLET PO PRN ×2 (09:52→17:21)
[2017-07-10] MEDS: HEPARIN NA (PORCINE) 5,000 UNITS/ML 1ML VIAL SQ SCH ×2 (09:54→21:36)
[2017-07-10] MEDS: VENLAFAXINE HCL 75 MG E.R. CAPSULES (FP) PO SCH (09:54)
[2017-07-10] MEDS: PANTOPRAZOLE 20 MG TABLET (FP) PO SCH (09:54)
[2017-07-10] MEDS: POTASSIUM CHLORIDE TABS 20 MEQ TABLET.ER (FP) PO SCH (09:54)
[2017-07-10] MEDS: FUROSEMIDE 40 MG/4 ML INJECTABLE VIAL IVPUSH SCH (09:58)
--- NOTE | 2017-07-10 10:53 | PN ---
Progress Note, Physician History of Present Illness: pulmonary alert,oob-chair,-sob. - Current Medication List Current Medications: Active Medications Acetaminophen (Tylenol -) 500 mg PO Q6H PRN PRN Reason: PAIN LEVEL 1-5 Albuterol/Ipratropium (Duoneb -) 1 amp NEB RQID [facility] Last Admin: 07/10/17 07:30 Dose: 1 amp Atorvastatin Calcium (Lipitor -) 40 mg PO HS [facility] Last Admin: 07/09/17 21:26 Dose: 40 mg Furosemide (Lasix Injection -) 40 mg IVPUSH DAILY [facility] Last Admin: 07/10/17 09:58 Dose: 40 mg Heparin Sodium (Porcine) (Heparin -) 5,000 unit SQ BID [facility] Last Admin: 07/10/17 09:54 Dose: 5,000 unit Piperacillin Sod/Tazobactam (Sod 4.5 gm/ Dextrose) 100 mls @ 200 mls/hr IVPB Q8H-IV [facility]; Protocol Last Admin: 07/10/17 10:00 Dose: 200 mls/hr Melatonin (Melatonin) 5 mg PO HS PRN PRN Reason: INSOMNIA Last Admin: 07/08/17 00:32 Dose: 5 mg Methylprednisolone Sodium Succinate (Solu-Medrol -) 40 mg IVPUSH Q6H-IV [facility] Last Admin: 07/10/17 09:54 Dose: 40 mg Oxycodone HCl (Roxicodone -) 5 mg PO Q6H PRN PRN Reason: PAIN LEVEL 6-10 Last Admin: 07/10/17 09:52 Dose: 5 mg Pantoprazole Sodium (Protonix -) 20 mg PO DAILY [facility] Last Admin: 07/10/17 09:54 Dose: 20 mg Potassium Chloride (K-Dur -) 20 meq PO DAILY [facility] Last Admin: 07/10/17 09:54 Dose: 20 meq Venlafaxine HCl (Effexor Xr -) 150 mg PO DAILY [facility] Last Admin: 07/10/17 09:54 Dose: 150 mg - Objective Vital Signs: Vital Signs Temperature 98.4 F 07/10/17 06:00 Pulse Rate 95 H 07/10/17 06:00 Respiratory Rate 18 07/10/17 06:00 Blood Pressure 123/80 07/10/17 06:00 O2 Sat by Pulse Oximetry (%) 97 06/02/18 21:00 Constitutional: Yes: Well Nourished, Calm Eyes: Yes: WNL HENT: Yes: WNL Neck: Yes: WNL Cardiovascular: Yes: Regular Rate and Rhythm, S1, S2 Respiratory: Yes: Rhonchi (few rhonchi) Gastrointestinal: Yes: Normal Bowel Sounds, Soft Extremities: Yes: WNL Edema: No Labs: Assessment/Plan Problem List - Problems (1) Adenocarcinoma, lung Code(s): C34.90 - MALIGNANT NEOPLASM OF UNSP PART OF UNSP BRONCHUS OR LUNG (2) COPD (chronic obstructive pulmonary disease) Code(s): J44.9 - CHRONIC OBSTRUCTIVE PULMONARY DISEASE, UNSPECIFIED (3) Pneumonia Code(s): J18.9 - PNEUMONIA, UNSPECIFIED ORGANISM Qualifiers: Pneumonia type: due to unspecified organism Laterality: left Lung location: unspecified part of lung Qualified Code(s): J18.9 - Pneumonia, unspecified organism (4) Dyspnea Code(s): R06.00 - DYSPNEA, UNSPECIFIED (5) HTN (hypertension) Code(s): I10 - ESSENTIAL (PRIMARY) HYPERTENSION (6) Hypercholesteremia Code(s): E78.00 - PURE HYPERCHOLESTEROLEMIA, UNSPECIFIED (7) Mass of left lung Code(s): R91.8 - OTHER NONSPECIFIC ABNORMAL FINDING OF LUNG FIELD Assessment/Plan (?) Lymphangitic spread of CA based on CT findings Suspected Post-obstructive PNA Do not suspect volume overload / CHF ABX Per ID Medrol taper Lasix BD TX O2 VTE prophylaxis No smoking DR NGUYEN
[2017-07-10] MEDS: ATORVASTATIN CA 40 MG TABLET (FP) PO SCH (21:37)
[2017-07-11] MEDS ORDERED: PIPERACILLIN/TAZOBACTAM 4.5 GM VIAL IVPB ONE ×2 (01:37→08:59)
[2017-07-11] MEDS ORDERED: DEXTROSE 5%-WATER 100 ML IVPB ONE ×2 (01:38→08:59)
[2017-07-11] MEDS: methylPREDNISolone NA SUCC 40 MG/1 ML VIAL IVPUSH SCH ×3 (01:56→18:53)
[2017-07-11] MEDS: PIPERACILLIN/TAZOB 4.5 GM 4.5 GM in DEXTROSE 5%-WATER 100 ML IVPB SCH ×2 (01:58→09:23)
[2017-07-11] MEDS: ALBUTEROL SO4 2.5/IPRATROPIUM 0.5 INH SOL 3 ML VIAL.NEB. NEB SCH ×4 (07:25→21:00)
[2017-07-11] MEDS ORDERED: PT OWN MED DRAWER 7, Y5N ONE ×2 (08:59→12:45)
[2017-07-11] MEDS: oxyCODONE HCL 5 MG TABLET PO PRN ×2 (09:21→18:49)
[2017-07-11] MEDS: POTASSIUM CHLORIDE TABS 20 MEQ TABLET.ER (FP) PO SCH (09:22)
[2017-07-11] MEDS: VENLAFAXINE HCL 75 MG E.R. CAPSULES (FP) PO SCH (09:22)
[2017-07-11] MEDS: PANTOPRAZOLE 20 MG TABLET (FP) PO SCH (09:22)
[2017-07-11] MEDS: FUROSEMIDE 40 MG/4 ML INJECTABLE VIAL IVPUSH SCH (09:23)
[2017-07-11] MEDS: HEPARIN NA (PORCINE) 5,000 UNITS/ML 1ML VIAL SQ SCH ×2 (09:23→21:53)
--- NOTE | 2017-07-11 09:40 | PN ---
Progress Note, Physician Chief Complaint: ID Inocente Afebrile - Current Medication List Current Medications: Active Medications Acetaminophen (Tylenol -) 500 mg PO Q6H PRN PRN Reason: PAIN LEVEL 1-5 Albuterol/Ipratropium (Duoneb -) 1 amp NEB RQID [facility] Last Admin: 07/11/17 07:25 Dose: 1 amp Atorvastatin Calcium (Lipitor -) 40 mg PO HS [facility] Last Admin: 07/10/17 21:37 Dose: 40 mg Furosemide (Lasix Injection -) 40 mg IVPUSH DAILY [facility] Last Admin: 07/11/17 09:23 Dose: 40 mg Heparin Sodium (Porcine) (Heparin -) 5,000 unit SQ BID [facility] Last Admin: 07/11/17 09:23 Dose: 5,000 unit Piperacillin Sod/Tazobactam (Sod 4.5 gm/ Dextrose) 100 mls @ 200 mls/hr IVPB Q8H-IV [facility]; Protocol Last Admin: 07/11/17 09:23 Dose: 200 mls/hr Melatonin (Melatonin) 5 mg PO HS PRN PRN Reason: INSOMNIA Last Admin: 07/08/17 00:32 Dose: 5 mg Methylprednisolone Sodium Succinate (Solu-Medrol -) 40 mg IVPUSH Q8H-IV [facility] Last Admin: 07/11/17 09:23 Dose: 40 mg Oxycodone HCl (Roxicodone -) 5 mg PO Q6H PRN PRN Reason: PAIN LEVEL 6-10 Last Admin: 07/11/17 09:21 Dose: 5 mg Pantoprazole Sodium (Protonix -) 20 mg PO DAILY [facility] Last Admin: 07/11/17 09:22 Dose: 20 mg Potassium Chloride (K-Dur -) 20 meq PO DAILY [facility] Last Admin: 07/11/17 09:22 Dose: 20 meq Venlafaxine HCl (Effexor Xr -) 150 mg PO DAILY [facility] Last Admin: 07/11/17 09:22 Dose: 150 mg - Objective Vital Signs: Vital Signs Temperature 98.1 F 07/11/17 09:16 Pulse Rate 102 H 07/11/17 09:16 Respiratory Rate 22 07/11/17 09:16 Blood Pressure 130/82 07/11/17 09:16 O2 Sat by Pulse Oximetry (%) 96 07/10/17 21:00 Constitutional: Yes: Well Nourished, No Distress HENT: Yes: WNL, Atraumatic Neck: Yes: WNL, Supple Cardiovascular: Yes: S1, S2 Respiratory: Yes: WNL, Regular, CTA Bilaterally Gastrointestinal: Yes: WNL, Normal Bowel Sounds. No: Tenderness, Epigastrium Labs: CBC, BMP 07/07/17 08:00 07/07/17 08:00 Problem List - Problems (1) Adenocarcinoma, lung Code(s): C34.90 - MALIGNANT NEOPLASM OF UNSP PART OF UNSP BRONCHUS OR LUNG (2) Pneumonia Code(s): J18.9 - PNEUMONIA, UNSPECIFIED ORGANISM Qualifiers: Pneumonia type: due to unspecified organism Laterality: left Lung location: unspecified part of lung Qualified Code(s): J18.9 - Pneumonia, unspecified organism (3) COPD (chronic obstructive pulmonary disease) Code(s): J44.9 - CHRONIC OBSTRUCTIVE PULMONARY DISEASE, UNSPECIFIED Assessment/Plan Microbiology 07/06/17 11:30 Urine - Urine Clean Catch Legionella Antigen - Final 07/06/17 11:30 Urine - Urine Clean Catch Streptococcus pneumoniae Antigen ( M - Final 07/06/17 16:36 Blood - Peripheral Venous Blood Culture - Preliminary NO GROWTH OBTAINED AFTER 96 HOURS, INCUBATION TO CONTINUE FOR 1 DAYS. 07/06/17 16:36 Blood - Peripheral Venous Blood Culture - Preliminary NO GROWTH OBTAINED AFTER 96 HOURS, INCUBATION TO CONTINUE FOR 1 DAYS. Laboratory Tests 07/06/17 07/07/17 07/07/17 13:53 08:00 08:00 WBC 12.8 H D 10.4 H BUN 14 Creatinine 0.6 L Assessment Adenocarcinoma Lung Lymphangitis spread ? post obstructive PNA Plan Stop IV antibiotics Augmentin Placement Jesse FORMAN
--- NOTE | 2017-07-11 11:07 | PN ---
Progress Note, Physician Chief Complaint: adenocarcinoma of lung and possible obstructe pna on iv abx now po augmentin - Current Medication List Current Medications: Active Medications Acetaminophen (Tylenol -) 500 mg PO Q6H PRN PRN Reason: PAIN LEVEL 1-5 Albuterol/Ipratropium (Duoneb -) 1 amp NEB RQID [facility] Last Admin: 07/11/17 11:05 Dose: 1 amp Amoxicillin/Clavulanate Potassium (Augmentin - 875mg Tablet) 1 tab PO BID@0800, 1730 [facility] Atorvastatin Calcium (Lipitor -) 40 mg PO HS [facility] Last Admin: 07/10/17 21:37 Dose: 40 mg Furosemide (Lasix Injection -) 40 mg IVPUSH DAILY [facility] Last Admin: 07/11/17 09:23 Dose: 40 mg Heparin Sodium (Porcine) (Heparin -) 5,000 unit SQ BID [facility] Last Admin: 07/11/17 09:23 Dose: 5,000 unit Melatonin (Melatonin) 5 mg PO HS PRN PRN Reason: INSOMNIA Last Admin: 07/08/17 00:32 Dose: 5 mg Methylprednisolone Sodium Succinate (Solu-Medrol -) 40 mg IVPUSH Q8H-IV [facility] Last Admin: 07/11/17 09:23 Dose: 40 mg Oxycodone HCl (Roxicodone -) 5 mg PO Q6H PRN PRN Reason: PAIN LEVEL 6-10 Last Admin: 07/11/17 09:21 Dose: 5 mg Pantoprazole Sodium (Protonix -) 20 mg PO DAILY [facility] Last Admin: 07/11/17 09:22 Dose: 20 mg Potassium Chloride (K-Dur -) 20 meq PO DAILY [facility] Last Admin: 07/11/17 09:22 Dose: 20 meq Venlafaxine HCl (Effexor Xr -) 150 mg PO DAILY [facility] Last Admin: 07/11/17 09:22 Dose: 150 mg - Objective Vital Signs: Vital Signs Temperature 98.1 F 07/11/17 09:16 Pulse Rate 102 H 07/11/17 09:16 Respiratory Rate 22 07/11/17 09:16 Blood Pressure 130/82 07/11/17 09:16 O2 Sat by Pulse Oximetry (%) 96 07/10/17 21:00 Constitutional: Yes: Calm Neck: Yes: Trachea Midline Cardiovascular: Yes: Regular Rate and Rhythm, S1, S2 Respiratory: Yes: CTA Bilaterally Gastrointestinal: Yes: Normal Bowel Sounds, Soft Edema: No Neurological: Yes: Alert Labs: CBC, BMP 07/07/17 08:00 07/07/17 08:00 Problem List - Problems (1) Adenocarcinoma, lung Assessment/Plan: patient now on po augmetin iv solumedrol q8hr will taper to q12 if ok with pulm dvtppx possible SNF pain control PT Note reviwed Code(s): C34.90 - MALIGNANT NEOPLASM OF UNSP PART OF UNSP BRONCHUS OR LUNG
--- NOTE | 2017-07-11 12:32 | PN ---
Progress Note, Physician History of Present Illness: PULMONARY ALERT,NO COMPLAINTS,-SOB,-COUGH,-CP - Current Medication List Current Medications: Active Medications Acetaminophen (Tylenol -) 500 mg PO Q6H PRN PRN Reason: PAIN LEVEL 1-5 Albuterol/Ipratropium (Duoneb -) 1 amp NEB RQID [facility] Last Admin: 07/11/17 11:05 Dose: 1 amp Amoxicillin/Clavulanate Potassium (Augmentin - 875mg Tablet) 1 tab PO BID@0800, 1730 [facility] Atorvastatin Calcium (Lipitor -) 40 mg PO HS [facility] Last Admin: 07/10/17 21:37 Dose: 40 mg Furosemide (Lasix -) 40 mg PO DAILY [facility] Heparin Sodium (Porcine) (Heparin -) 5,000 unit SQ BID [facility] Last Admin: 07/11/17 09:23 Dose: 5,000 unit Melatonin (Melatonin) 5 mg PO HS PRN PRN Reason: INSOMNIA Last Admin: 07/08/17 00:32 Dose: 5 mg Methylprednisolone Sodium Succinate (Solu-Medrol -) 40 mg IVPUSH Q8H-IV [facility] Last Admin: 07/11/17 09:23 Dose: 40 mg Oxycodone HCl (Roxicodone -) 5 mg PO Q6H PRN PRN Reason: PAIN LEVEL 6-10 Last Admin: 07/11/17 09:21 Dose: 5 mg Pantoprazole Sodium (Protonix -) 20 mg PO DAILY [facility] Last Admin: 07/11/17 09:22 Dose: 20 mg Potassium Chloride (K-Dur -) 20 meq PO DAILY [facility] Last Admin: 07/11/17 09:22 Dose: 20 meq Venlafaxine HCl (Effexor Xr -) 150 mg PO DAILY [facility] Last Admin: 07/11/17 09:22 Dose: 150 mg - Objective Vital Signs: Vital Signs Temperature 98.1 F 07/11/17 09:16 Pulse Rate 102 H 07/11/17 09:16 Respiratory Rate 22 07/11/17 09:16 Blood Pressure 130/82 07/11/17 09:16 O2 Sat by Pulse Oximetry (%) 96 07/10/17 21:00 Constitutional: Yes: Well Nourished, Calm Eyes: Yes: WNL HENT: Yes: WNL Neck: Yes: WNL Cardiovascular: Yes: Regular Rate and Rhythm, S1, S2 Respiratory: Yes: Rales (few crackles on left) Gastrointestinal: Yes: Normal Bowel Sounds, Soft Extremities: Yes: WNL Edema: No Labs: Assessment/Plan Problem List - Problems (1) Adenocarcinoma, lung Code(s): C34.90 - MALIGNANT NEOPLASM OF UNSP PART OF UNSP BRONCHUS OR LUNG (2) COPD (chronic obstructive pulmonary disease) Code(s): J44.9 - CHRONIC OBSTRUCTIVE PULMONARY DISEASE, UNSPECIFIED (3) Pneumonia Code(s): J18.9 - PNEUMONIA, UNSPECIFIED ORGANISM Qualifiers: Pneumonia type: due to unspecified organism Laterality: left Lung location: unspecified part of lung Qualified Code(s): J18.9 - Pneumonia, unspecified organism (4) Dyspnea Code(s): R06.00 - DYSPNEA, UNSPECIFIED (5) HTN (hypertension) Code(s): I10 - ESSENTIAL (PRIMARY) HYPERTENSION (6) Hypercholesteremia Code(s): E78.00 - PURE HYPERCHOLESTEROLEMIA, UNSPECIFIED (7) Mass of left lung Code(s): R91.8 - OTHER NONSPECIFIC ABNORMAL FINDING OF LUNG FIELD Assessment/Plan (?) Lymphangitic spread of CA based on CT findings Suspected Post-obstructive PNA Do not suspect volume overload / CHF ABX Per ID Prednisone Lasix BD TX O2 VTE prophylaxis No smoking chest x-ray DR NGUYEN
[2017-07-11] MEDS: AMOX TR/POT CLAV 875MG/125MG TABLETS (FP) PO SCH (17:43)
[2017-07-11] MEDS: ATORVASTATIN CA 40 MG TABLET (FP) PO SCH (21:53)
[2017-07-11] MEDS: MELATONIN 5 MG TABLETS PO PRN (21:53)
--- NOTE | 2017-07-11 23:25 | PN ---
Progress Note (short form) - Note Progress Note: Patient seen and examined Feels well AFVSS Cor: RSR, No murmurs, No gallops Lungs: Clear to P&A Abd: Soft, Normal bowel sounds, No organomegaly Ext:No significant edema Labs/meds reviewed A/P (?) Lymphangitic spread of CA based on CT findings Suspected Post-obstructive PNA advanced lung cancer PDL1>90% s/p WBRT HEp. C Poor follow up and did not receive immunotherapy goals of care and discharge planning discussions ongoing
[2017-07-12] MEDS: methylPREDNISolone NA SUCC 40 MG/1 ML VIAL IVPUSH SCH ×3 (01:08→21:42)
[2017-07-12] MEDS: oxyCODONE HCL 5 MG TABLET PO PRN ×2 (01:16→17:57)
[2017-07-12] MEDS: ALBUTEROL SO4 2.5/IPRATROPIUM 0.5 INH SOL 3 ML VIAL.NEB. NEB SCH (08:35)
[2017-07-12] MEDS: AMOX TR/POT CLAV 875MG/125MG TABLETS (FP) PO SCH ×2 (08:48→17:52)
[2017-07-12] MEDS ORDERED: PT OWN MED DRAWER 7, Y5N ONE (10:08)
[2017-07-12] MEDS: HEPARIN NA (PORCINE) 5,000 UNITS/ML 1ML VIAL SQ SCH ×3 (10:15→21:48)
[2017-07-12] MEDS: PANTOPRAZOLE 20 MG TABLET (FP) PO SCH (10:15)
[2017-07-12] MEDS: POTASSIUM CHLORIDE TABS 20 MEQ TABLET.ER (FP) PO SCH (10:15)
[2017-07-12] MEDS: FUROSEMIDE 40 MG TABLET (FP) PO SCH (10:15)
[2017-07-12] MEDS: VENLAFAXINE HCL 75 MG E.R. CAPSULES (FP) PO SCH (10:16)
--- NOTE | 2017-07-12 11:54 | PN ---
Progress Note (short form) - Note Progress Note: PULMONARY Still some shortness of breath and cough. Last Vital Signs Temp Pulse Resp BP Pulse Ox 98.0 F 84 20 130/91 100 07/12/17 05:00 07/12/17 05:00 07/12/17 05:00 07/12/17 05:00 07/12/17 08:51 Gen: NAD at rest Heart: RRR Lung: decreased breath sounds at the bases Abd: soft, nontender Ext: no edema CBC, BMP 07/07/17 08:00 07/07/17 08:00 Active Medications Acetaminophen (Tylenol -) 500 mg PO Q6H PRN PRN Reason: PAIN LEVEL 1-5 Albuterol/Ipratropium (Duoneb -) 1 amp NEB RQID [facility] Last Admin: 07/12/17 08:35 Dose: 1 amp Amoxicillin/Clavulanate Potassium (Augmentin - 875mg Tablet) 1 tab PO BID@0800, 1730 [facility] Last Admin: 07/12/17 08:48 Dose: 1 tab Atorvastatin Calcium (Lipitor -) 40 mg PO HS [facility] Last Admin: 07/11/17 21:53 Dose: 40 mg Furosemide (Lasix -) 40 mg PO DAILY [facility] Last Admin: 07/12/17 10:15 Dose: 40 mg Heparin Sodium (Porcine) (Heparin -) 5,000 unit SQ BID [facility] Last Admin: 07/12/17 10:15 Dose: 5,000 unit Melatonin (Melatonin) 5 mg PO HS PRN PRN Reason: INSOMNIA Last Admin: 07/11/17 21:53 Dose: 5 mg Methylprednisolone Sodium Succinate (Solu-Medrol -) 40 mg IVPUSH Q8H-IV [facility] Last Admin: 07/12/17 10:16 Dose: 40 mg Oxycodone HCl (Roxicodone -) 5 mg PO Q6H PRN PRN Reason: PAIN LEVEL 6-10 Last Admin: 07/12/17 01:16 Dose: 5 mg Pantoprazole Sodium (Protonix -) 20 mg PO DAILY [facility] Last Admin: 07/12/17 10:15 Dose: 20 mg Potassium Chloride (K-Dur -) 20 meq PO DAILY [facility] Last Admin: 07/12/17 10:15 Dose: 20 meq Venlafaxine HCl (Effexor Xr -) 150 mg PO DAILY [facility] Last Admin: 07/12/17 10:16 Dose: 150 mg A/P Advanced Lung Ca Suspected Lymphangitic Spread Pneumonia COPD - taper medrol - inhaled bronchodilators - O2 as needed - DVT prophylaxis - agree with palliative care - pt asking for wheelchair when he goes home
--- NOTE | 2017-07-12 14:47 | PN ---
Progress Note, Physician Chief Complaint: patient seen and examined on medrol taper - Current Medication List Current Medications: Active Medications Acetaminophen (Tylenol -) 500 mg PO Q6H PRN PRN Reason: PAIN LEVEL 1-5 Amoxicillin/Clavulanate Potassium (Augmentin - 875mg Tablet) 1 tab PO BID@0800, 1730 [facility] Last Admin: 07/12/17 08:48 Dose: 1 tab Atorvastatin Calcium (Lipitor -) 40 mg PO HS [facility] Last Admin: 07/11/17 21:53 Dose: 40 mg Furosemide (Lasix -) 40 mg PO DAILY [facility] Last Admin: 07/12/17 10:15 Dose: 40 mg Heparin Sodium (Porcine) (Heparin -) 5,000 unit SQ BID [facility] Last Admin: 07/12/17 10:15 Dose: 5,000 unit Melatonin (Melatonin) 5 mg PO HS PRN PRN Reason: INSOMNIA Last Admin: 07/11/17 21:53 Dose: 5 mg Methylprednisolone Sodium Succinate (Solu-Medrol -) 40 mg IVPUSH Q8H-IV [facility] Last Admin: 07/12/17 10:16 Dose: 40 mg Oxycodone HCl (Roxicodone -) 5 mg PO Q6H PRN PRN Reason: PAIN LEVEL 6-10 Last Admin: 07/12/17 01:16 Dose: 5 mg Pantoprazole Sodium (Protonix -) 20 mg PO DAILY [facility] Last Admin: 07/12/17 10:15 Dose: 20 mg Potassium Chloride (K-Dur -) 20 meq PO DAILY [facility] Last Admin: 07/12/17 10:15 Dose: 20 meq Venlafaxine HCl (Effexor Xr -) 150 mg PO DAILY [facility] Last Admin: 07/12/17 10:16 Dose: 150 mg - Objective Vital Signs: Vital Signs Temperature 98.0 F 07/12/17 05:00 Pulse Rate 84 07/12/17 05:00 Respiratory Rate 20 07/12/17 05:00 Blood Pressure 130/91 07/12/17 05:00 O2 Sat by Pulse Oximetry (%) 100 07/12/17 08:51 Constitutional: Yes: Calm Cardiovascular: Yes: Regular Rate and Rhythm, S1, S2 Respiratory: Yes: Diminished Gastrointestinal: Yes: Normal Bowel Sounds, Soft Edema: No Neurological: Yes: Alert Labs: CBC, BMP 07/07/17 08:00 07/07/17 08:00 Problem List - Problems (1) Adenocarcinoma, lung Assessment/Plan: patient now on po augmetin iv solumedrol q8hr taper q12 if ok with pulm dvtppx possible SNF placement pain control PT Note reviwed- close cotact guard reduced stride 30 feet palliative care Code(s): C34.90 - MALIGNANT NEOPLASM OF UNSP PART OF UNSP BRONCHUS OR LUNG Assessment/Plan awaiting snf placement
[2017-07-12] MEDS: NYSTATIN/TRIAMCINOLONE TOPICAL CREAM 15 GM TUBE TP SCH ×2 (17:53→21:43)
[2017-07-12] MEDS: ATORVASTATIN CA 40 MG TABLET (FP) PO SCH (21:42)
[2017-07-13] MEDS: AMOX TR/POT CLAV 875MG/125MG TABLETS (FP) PO SCH ×2 (09:00→17:54)
[2017-07-13] MEDS: POTASSIUM CHLORIDE TABS 20 MEQ TABLET.ER (FP) PO SCH (11:13)
[2017-07-13] MEDS: VENLAFAXINE HCL 75 MG E.R. CAPSULES (FP) PO SCH (11:13)
[2017-07-13] MEDS: PANTOPRAZOLE 20 MG TABLET (FP) PO SCH (11:13)
[2017-07-13] MEDS: FUROSEMIDE 40 MG TABLET (FP) PO SCH (11:13)
[2017-07-13] MEDS: methylPREDNISolone NA SUCC 40 MG/1 ML VIAL IVPUSH SCH ×2 (11:14→22:11)
[2017-07-13] MEDS: NYSTATIN/TRIAMCINOLONE TOPICAL CREAM 15 GM TUBE TP SCH ×2 (11:14→22:11)
[2017-07-13] MEDS: HEPARIN NA (PORCINE) 5,000 UNITS/ML 1ML VIAL SQ SCH ×2 (11:15→22:12)
[2017-07-13] MEDS: oxyCODONE HCL 5 MG TABLET PO PRN (11:15)
--- NOTE | 2017-07-13 11:22 | DS ---
Physical Examination Vital Signs: Vital Signs Temperature 98.0 F 07/13/17 05:00 Pulse Rate 88 07/13/17 10:00 Respiratory Rate 18 07/13/17 10:00 Blood Pressure 142/92 07/13/17 10:00 O2 Sat by Pulse Oximetry (%) 99 07/12/17 21:00 Constitutional: Yes: No Distress Eyes: Yes: WNL HENT: Yes: WNL Neck: Yes: WNL Cardiovascular: Yes: WNL Respiratory: Yes: [place] Gastrointestinal: Yes: WNL Musculoskeletal: Yes: Muscle Weakness Extremities: Yes: Deformity Edema: Yes Integumentary: Yes: Rash Wound/Incision: Yes: Dressing Dry and Intact Neurological: Yes: Pre-Existing Deficit ...Motor Strength: LLE, RLE Psychiatric: Yes: Other Labs: CBC, BMP 07/07/17 08:00 07/07/17 08:00 Discharge Summary Reason For Visit: PNEUMONIA Current Active Problems Adenocarcinoma, lung (Acute) COPD (chronic obstructive pulmonary disease) (Acute) Lung cancer (Acute) Pneumonia (Acute) Procedures: Principal: CTA CHEST Hospital Course: TREATED WITH IV ABX, NEBS, STEROIDS IV FOR PNA, H/O LUNG CA, WILL NEED PT/REHAB AT [facility] Condition: Fair - Instructions Diet, Activity, Other Instructions: LOW SODIUM F/U PMD OUTPATIENT Disposition: [facility] - Home Medications Comprehensive Discharge Medication List: Ambulatory Orders Atorvastatin Ca [Lipitor] 40 mg PO HS 12/27/16 Ibuprofen [Motrin -] 600 mg PO PRN PRN 12/27/16 Oxycodone HCl/Acetaminophen [Percocet 5-325 mg Tablet] 1 tablet PO PRN PRN 12/27 Pantoprazole Sodium [Protonix -] 20 mg PO DAILY 12/27/16 Zolpidem Tartrate 10 mg PO HS 12/27/16 Acetaminophen [Tylenol .Extra-Strength -] 500 mg PO Q6H PRN 12/28/16 Venlafaxine HCl ER [Effexor Xr -] 150 mg PO DAILY 12/28/16 Albuterol 2.5/Ipratropium 0.5 [Duoneb -] 1 amp NEB RQID amp 07/13/17 Amox-Tr/K Cl [Augmentin 875-125mg Tablet -] 1 tab PO BID@0800,1730 #10 tablet Furosemide [Lasix -] 40 mg PO DAILY tablet 07/13/17 Heparin - 5,000 unit SQ BID vial 07/13/17 Melatonin 5 mg PO HS PRN tab 07/13/17 Nystatin/Triamcinolone Top Cr [Mycolog II -] 1 applic TP BID applic 07/13/17 Potassium Chloride [K-Dur -] 20 meq PO DAILY tablet.er 07/13/17 Prednisone [Deltasone] See Taper PO BID #12 tablet 07/13/17 oxyCODONE HCL [Roxicodone -] 5 mg PO Q6H PRN tablet MDD 4 07/13/17
--- NOTE | 2017-07-13 13:04 | PN ---
Progress Note, Physician History of Present Illness: pulmonary alert,no distress,-cough,-sob,-cp - Current Medication List Current Medications: Active Medications Acetaminophen (Tylenol -) 500 mg PO Q6H PRN PRN Reason: PAIN LEVEL 1-5 Amoxicillin/Clavulanate Potassium (Augmentin - 875mg Tablet) 1 tab PO BID@0800, 1730 [facility] Last Admin: 07/13/17 09:00 Dose: 1 tab Atorvastatin Calcium (Lipitor -) 40 mg PO HS [facility] Last Admin: 07/12/17 21:42 Dose: 40 mg Furosemide (Lasix -) 40 mg PO DAILY [facility] Last Admin: 07/13/17 11:13 Dose: 40 mg Heparin Sodium (Porcine) (Heparin -) 5,000 unit SQ BID [facility] Last Admin: 07/13/17 11:15 Dose: 5,000 unit Melatonin (Melatonin) 5 mg PO HS PRN PRN Reason: INSOMNIA Last Admin: 07/11/17 21:53 Dose: 5 mg Methylprednisolone Sodium Succinate (Solu-Medrol -) 40 mg IVPUSH BID [facility] Last Admin: 07/13/17 11:14 Dose: 40 mg Nystatin/Triamcinolone Acetonide (Mycolog Ii Cream -) 1 applic TP BID [facility] Last Admin: 07/13/17 11:14 Dose: 1 applic Oxycodone HCl (Roxicodone -) 5 mg PO Q6H PRN PRN Reason: PAIN LEVEL 6-10 Last Admin: 07/13/17 11:15 Dose: 5 mg Pantoprazole Sodium (Protonix -) 20 mg PO DAILY [facility] Last Admin: 07/13/17 11:13 Dose: 20 mg Potassium Chloride (K-Dur -) 20 meq PO DAILY [facility] Last Admin: 07/13/17 11:13 Dose: 20 meq Venlafaxine HCl (Effexor Xr -) 150 mg PO DAILY [facility] Last Admin: 07/13/17 11:13 Dose: 150 mg - Objective Vital Signs: Vital Signs Temperature 98.0 F 07/13/17 05:00 Pulse Rate 88 07/13/17 10:00 Respiratory Rate 07/13/17 10:00 Blood Pressure 142/92 07/13/17 10:00 O2 Sat by Pulse Oximetry (%) 99 07/12/17 21:00 Constitutional: Yes: Well Nourished, Calm Eyes: Yes: WNL HENT: Yes: WNL Neck: Yes: WNL Cardiovascular: Yes: Regular Rate and Rhythm, S1, S2 Respiratory: Yes: Rales (few scattered rhonchi and crackles), Rhonchi Gastrointestinal: Yes: Normal Bowel Sounds, Soft Extremities: Yes: WNL Edema: No Labs: CBC, BMP - ....Imaging Chest X-ray: Report Reviewed, Image Reviewed Assessment/Plan Problem List - Problems (1) Adenocarcinoma, lung Code(s): C34.90 - MALIGNANT NEOPLASM OF UNSP PART OF UNSP BRONCHUS OR LUNG (2) COPD (chronic obstructive pulmonary disease) Code(s): J44.9 - CHRONIC OBSTRUCTIVE PULMONARY DISEASE, UNSPECIFIED (3) Pneumonia Code(s): J18.9 - PNEUMONIA, UNSPECIFIED ORGANISM Qualifiers: Pneumonia type: due to unspecified organism Laterality: left Lung location: unspecified part of lung Qualified Code(s): J18.9 - Pneumonia, unspecified organism (4) Dyspnea Code(s): R06.00 - DYSPNEA, UNSPECIFIED (5) HTN (hypertension) Code(s): I10 - ESSENTIAL (PRIMARY) HYPERTENSION (6) Hypercholesteremia Code(s): E78.00 - PURE HYPERCHOLESTEROLEMIA, UNSPECIFIED (7) Mass of left lung Code(s): R91.8 - OTHER NONSPECIFIC ABNORMAL FINDING OF LUNG FIELD Assessment/Plan (?) Lymphangitic spread of CA based on CT findings Suspected Post-obstructive PNA Do not suspect volume overload / CHF Prednisone Lasix BD TX O2 VTE prophylaxis No smoking snf DR NGUYEN
[2017-07-13] MEDS: ATORVASTATIN CA 40 MG TABLET (FP) PO SCH (22:11)
[2017-07-14 07:00] VITALS: PULSE 84; TEMP 97.4
[2017-07-14] MEDS: AMOX TR/POT CLAV 875MG/125MG TABLETS (FP) PO SCH (08:17)
[2017-07-14] MEDS ORDERED: PT OWN MED DRAWER 7, Y5N ONE (08:49)
[2017-07-14] MEDS: HEPARIN NA (PORCINE) 5,000 UNITS/ML 1ML VIAL SQ SCH (09:20)
[2017-07-14] MEDS: VENLAFAXINE HCL 75 MG E.R. CAPSULES (FP) PO SCH (09:20)
[2017-07-14] MEDS: POTASSIUM CHLORIDE TABS 20 MEQ TABLET.ER (FP) PO SCH (09:21)
[2017-07-14] MEDS: PANTOPRAZOLE 20 MG TABLET (FP) PO SCH (09:22)
[2017-07-14] MEDS: NYSTATIN/TRIAMCINOLONE TOPICAL CREAM 15 GM TUBE TP SCH (09:22)
[2017-07-14] MEDS: FUROSEMIDE 40 MG TABLET (FP) PO SCH (09:22)
[2017-07-14] MEDS: methylPREDNISolone NA SUCC 40 MG/1 ML VIAL IVPUSH SCH (09:22)
--- NOTE | 2017-07-14 10:30 | PN ---
Progress Note, Physician Chief Complaint: patient seen and examined in bed no distress ready to go to [facility] - Current Medication List Current Medications: Active Medications Acetaminophen (Tylenol -) 500 mg PO Q6H PRN PRN Reason: PAIN LEVEL 1-5 Amoxicillin/Clavulanate Potassium (Augmentin - 875mg Tablet) 1 tab PO BID@0800, 1730 [facility] Last Admin: 07/14/17 08:17 Dose: 1 tab Atorvastatin Calcium (Lipitor -) 40 mg PO HS [facility] Last Admin: 07/13/17 22:11 Dose: 40 mg Furosemide (Lasix -) 40 mg PO DAILY [facility] Last Admin: 07/14/17 09:22 Dose: 40 mg Heparin Sodium (Porcine) (Heparin -) 5,000 unit SQ BID [facility] Last Admin: 07/14/17 09:20 Dose: 5,000 unit Melatonin (Melatonin) 5 mg PO HS PRN PRN Reason: INSOMNIA Last Admin: 07/11/17 21:53 Dose: 5 mg Methylprednisolone Sodium Succinate (Solu-Medrol -) 40 mg IVPUSH BID [facility] Last Admin: 07/14/17 09:22 Dose: 40 mg Nystatin/Triamcinolone Acetonide (Mycolog Ii Cream -) 1 applic TP BID [facility] Last Admin: 07/14/17 09:22 Dose: 1 applic Oxycodone HCl (Roxicodone -) 5 mg PO Q6H PRN PRN Reason: PAIN LEVEL 6-10 Last Admin: 07/13/17 11:15 Dose: 5 mg Pantoprazole Sodium (Protonix -) 20 mg PO DAILY [facility] Last Admin: 07/14/17 09:22 Dose: 20 mg Potassium Chloride (K-Dur -) 20 meq PO DAILY [facility] Last Admin: 07/14/17 09:21 Dose: 20 meq Venlafaxine HCl (Effexor Xr -) 150 mg PO DAILY [facility] Last Admin: 07/14/17 09:20 Dose: 150 mg - Objective Vital Signs: Vital Signs Temperature 97.4 F L 07/14/17 06:00 Pulse Rate 84 07/14/17 06:00 Respiratory Rate 20 07/14/17 06:00 Blood Pressure 125/81 07/14/17 06:00 O2 Sat by Pulse Oximetry (%) 99 07/13/17 21:00 Constitutional: Yes: Calm Cardiovascular: Yes: Regular Rate and Rhythm, S1, S2 Respiratory: Yes: Diminished (at bases) Gastrointestinal: Yes: Normal Bowel Sounds, Soft Edema: No Neurological: Yes: Alert, Oriented (to name) Labs: CBC, BMP 07/07/17 08:00 07/07/17 08:00 Problem List - Problems (1) Adenocarcinoma, lung Assessment/Plan: patient now on po augmetin iv solumedrol BID to change to oral prednisone dvtppx SNF today pain control PT Note reviewed- close cotact guard reduced stride 30 feet palliative care Code(s): C34.90 - MALIGNANT NEOPLASM OF UNSP PART OF UNSP BRONCHUS OR LUNG Assessment/Plan sacral erythema/rash mycolog cream hypokalemia: potasium repleted
[2017-07-14 11:06] VITALS: BP 131/79
--- NOTE | 2017-07-14 11:29 | PN ---
Progress Note (short form) - Note Progress Note: PULMONARY Denies shortness of breath or chest pain. Last Vital Signs Temp Pulse Resp BP Pulse Ox 97.4 F L 84 22 131/79 100 07/14/17 10:00 07/14/17 10:00 07/14/17 10:00 07/14/17 10:00 07/14/17 09:00 Gen: NAD at rest Heart: RRR Lung: decreased breath sounds at the bases Abd: soft, nontender Ext: no edema CBC, BMP 07/07/17 08:00 07/07/17 08:00 Active Medications Acetaminophen (Tylenol -) 500 mg PO Q6H PRN PRN Reason: PAIN LEVEL 1-5 Amoxicillin/Clavulanate Potassium (Augmentin - 875mg Tablet) 1 tab PO BID@0800, 1730 [facility] Last Admin: 07/14/17 08:17 Dose: 1 tab Atorvastatin Calcium (Lipitor -) 40 mg PO HS [facility] Last Admin: 07/13/17 22:11 Dose: 40 mg Furosemide (Lasix -) 40 mg PO DAILY [facility] Last Admin: 07/14/17 09:22 Dose: 40 mg Heparin Sodium (Porcine) (Heparin -) 5,000 unit SQ BID [facility] Last Admin: 07/14/17 09:20 Dose: 5,000 unit Melatonin (Melatonin) 5 mg PO HS PRN PRN Reason: INSOMNIA Last Admin: 07/11/17 21:53 Dose: 5 mg Methylprednisolone Sodium Succinate (Solu-Medrol -) 40 mg IVPUSH BID [facility] Last Admin: 07/14/17 09:22 Dose: 40 mg Nystatin/Triamcinolone Acetonide (Mycolog Ii Cream -) 1 applic TP BID [facility] Last Admin: 07/14/17 09:22 Dose: 1 applic Oxycodone HCl (Roxicodone -) 5 mg PO Q6H PRN PRN Reason: PAIN LEVEL 6-10 Last Admin: 07/13/17 11:15 Dose: 5 mg Pantoprazole Sodium (Protonix -) 20 mg PO DAILY [facility] Last Admin: 07/14/17 09:22 Dose: 20 mg Potassium Chloride (K-Dur -) 20 meq PO DAILY [facility] Last Admin: 07/14/17 09:21 Dose: 20 meq Venlafaxine HCl (Effexor Xr -) 150 mg PO DAILY [facility] Last Admin: 07/14/17 09:20 Dose: 150 mg A/P Advanced Lung Ca Suspected Lymphangitic Spread Pneumonia COPD - taper steroids - inhaled bronchodilators - O2 as needed - DVT prophylaxis - agree with palliative care
== END 2017-07-14 12:02 | DRG 194 ==
LOC: JER 12:38 → JERBED 15:16 → J5S 07-07 00:59
PROVIDERS: ADMIT Family Medicine; ATTEND Family Medicine
DX: J18.9 Pneumonia, unspecified organism (principal); C34.90 Malignant neoplasm of unspecified part of unspecified bronchus or lung; C79.31 Secondary malignant neoplasm of brain; C34.92 Malignant neoplasm of unspecified part of left bronchus or lung; J90 Pleural effusion, not elsewhere classified; I25.10 Atherosclerotic heart disease of native coronary artery without angina pectoris; I25.2 Old myocardial infarction; J44.9 Chronic obstructive pulmonary disease, unspecified; I10 Essential (primary) hypertension; E78.5 Hyperlipidemia, unspecified; F17.210 Nicotine dependence, cigarettes, uncomplicated; F32.9 Major depressive disorder, single episode, unspecified; E87.6 Hypokalemia; R21 Rash and other nonspecific skin eruption
CPT/HCPCS: 36415; 71045-TC-FY; 71046-TC-FY; 71275-TC; 80053; 81003; 82550; 83036; 83880; 84484; 85025; 86704; 87040; 87389; 87899; 93005; 93010; 93306-TC; 94640; 97116-GP; 97161-GP; 99284-25; J1644; J7620

== ENCOUNTER 2017-07-28 13:24 | Emergency (ER) | payer MEDICARE, OTHER ==
[2017-07-28] MEDS ORDERED: SODIUM CHLORIDE 0.9% 1000 ML INFUS.BAG IV ONE (13:46)
--- NOTE | 2017-07-28 13:46 | PDOC ---
History of Present Illness - General History Source: Patient, EMS Exam Limitations: Clinical Condition - History of Present Illness Initial Comments: 07/28/17 13:58 The patient is a 71 year old male brought in by EMS from the half-way, with a significant past medical history of lung cancer, asthma, COPD, CHF, HTN, and HLD, who presents to the emergency department for evaluation of respiratory distress. As per EMS, the patient was hypoxic and hypotensive on arrival. Unable to obtain history. Of note, the patient is a DNR/DNI. Allergies: NKDA Social History: Former smoker. No reported alcohol or drug use. Surgical History: Patient denies. PCP: WYATT Martinez <Amish Veras - Last Filed: 07/28/17 16:00> <Bandar Roman - Last Filed: 07/28/17 17:29> - General Stated Complaint: RESPIRATORY DISTRESS Time Seen by Provider: 07/28/17 13:45 Past History <Amish Veras - Last Filed: 07/28/17 16:00> - Past Medical History Anemia: No Asthma: Yes Cancer: Yes (LUNG METS TO BRAIN, LIVER) Cardiac Disorders: No CVA: No COPD: Yes CHF: No Dementia: No Diabetes: No GI Disorders: No Disorders: No HTN: Yes Hypercholesterolemia: Yes Liver Disease: No Psychiatric Problems: Yes (DEPRESSION/INSOMNIA) Seizures: No Thyroid Disease: No Lung CA: Yes - Surgical History Abdominal Surgery: No Appendectomy: No Cardiac Surgery: No Cholecystectomy: No Lung Surgery: No Neurologic Surgery: No Orthopedic Surgery: No (sx fx left le 2006) - Immunization History Immunization Up to Date: Yes - Suicide/Smoking/Psychosocial Hx Smoking History: Former smoker Have you smoked in the past 12 months: Yes Number of Cigarettes Smoked Daily: 10 'Breaking Loose' booklet given: 07/07/17 Hx Alcohol Use: No Drug/Substance Use Hx: No Substance Use Type: None, Alcohol Hx Substance Use Treatment: No <Bandar Roman - Last Filed: 07/28/17 17:29> - Past Medical History Allergies/Adverse Reactions: Allergies Allergy/AdvReac Type Severity Reaction Status Date / Time No Known Allergies Allergy Verified 07/28/17 13:43 Home Medications: Ambulatory Orders Atorvastatin Ca [Lipitor] 40 mg PO HS 12/27/16 Ibuprofen [Motrin -] 600 mg PO PRN PRN 12/27/16 Oxycodone HCl/Acetaminophen [Percocet 5-325 mg Tablet] 1 tablet PO PRN PRN 12/27 Pantoprazole Sodium [Protonix -] 20 mg PO DAILY 12/27/16 Zolpidem Tartrate 10 mg PO HS 12/27/16 Acetaminophen [Tylenol .Extra-Strength -] 500 mg PO Q6H PRN 12/28/16 Venlafaxine HCl ER [Effexor Xr -] 150 mg PO DAILY 12/28/16 Albuterol 2.5/Ipratropium 0.5 [Duoneb -] 1 amp NEB RQID amp 07/13/17 Amox-Tr/K Cl [Augmentin 875-125mg Tablet -] 1 tab PO BID@0800,1730 #10 tablet Furosemide [Lasix -] 40 mg PO DAILY tablet 07/13/17 Heparin - 5,000 unit SQ BID vial 07/13/17 Melatonin 5 mg PO HS PRN tab 07/13/17 Nystatin/Triamcinolone Top Cr [Mycolog II -] 1 applic TP BID applic 07/13/17 Potassium Chloride [K-Dur -] 20 meq PO DAILY tablet.er 07/13/17 Prednisone [Deltasone] See Taper PO BID #12 tablet 07/13/17 oxyCODONE HCL [Roxicodone -] 5 mg PO Q6H PRN tablet MDD 4 07/13/17 Prednisone 10 mg PO DAILY #14 tablet MDD 4 07/14/17 Venlafaxine HCl ER [Effexor Xr -] 150 mg PO DAILY cap.er.24h 07/14/17 Review of Systems - Review of Systems Able to Perform ROS?: No (clinical condition) Comments:: Unable to obtain review of systems due to clinical status. <Amish Veras - Last Filed: 07/28/17 16:00> *Physical Exam - Vital Signs Last Vital Signs Temp Pulse Resp BP Pulse Ox 98.7 F 55 L 15 61/50 77 L 07/28/17 13:43 07/28/17 13:43 07/28/17 13:43 07/28/17 13:43 07/28/17 13:43 <Amish Veras - Last Filed: 07/28/17 16:00> ED Treatment Course - LABORATORY CBC & Chemistry Diagram: 07/28/17 14:50 07/28/17 14:50 <Amish Veras - Last Filed: 07/28/17 16:00> - LABORATORY CBC & Chemistry Diagram: 07/28/17 14:50 07/28/17 14:50 <Bandar Roman - Last Filed: 07/28/17 17:29> Medical Decision Making - Medical Decision Making 07/28/17 17:10 Patient presented to the emergency department from half-way with hypoxia agonal respirations bradycardia. Very poor prognosis IV access attempted multiple times unable to obtain peripheral IV access even with ultrasound guidance. Decision made not to place central line and IO based on DNR/DNI status. EJ placed labs sent. Patient's cardiac status continued to deteriorate based on patient's wishes of DNR/DNI status cardiopulmonary resuscitation not initiated. 3:07 PM patient's rapid respirations ceased. Ultrasound demonstrated no cardiac activity no corneal reflex is no breath sounds no pulse. Patient pronounced at 3 :07 PM. Patient's healthcare proxy Festus Garcia informed of passing. There was no family members listed in patient's demographics and contact information. I placed a phone call to the patient's primary care provider but did not receive a phone call back. Case discussed with resident medical officer's office Jamie Rubio. Not a candidate for resident medical officer case MA number [id number] <Bandar Roman - Last Filed: 07/28/17 17:29> *DC/Admit/Observation/Transfer - Attestations Scribe Attestion: Documentation prepared by Amish Veras, acting as medical record assistant for Bandar Roman MD. <Amish Veras - Last Filed: 07/28/17 16:00> - Discharge Dispostion Decision to Admit order: No <Bandar Roman - Last Filed: 07/28/17 17:29> Diagnosis at time of Disposition: Cardiopulmonary arrest - Referrals Referrals: Sohail Mcdaniel MD [Primary Care Provider] - - Patient Instructions - Post Discharge Activity
[2017-07-28 13:49] VITALS: BP 61/50; PULSE 55; TEMP 98.7; BMI 23.4
[2017-07-28 15:18] LABS: BASO % 0.6 % (0-2.0); HEMATOCRIT 39.6 % (35.4-49); HEMOGLOBIN 12.2 GM/dL (11.7-16.9); LYMPH % 9.3 % (8-40); MCH 30.3 pg (25.7-33.7); MCHC 30.9 g/dl (32.0-35.9); MEAN CELL VOLUME 98.1 fl (80-96); MEAN PLT VOLUME 8.7 fl (7.5-11.1); MONO % 1.9 % (3.8-10.2); NEUT % 88.2 % (42.8-82.8); PLATELET COUNT 306 K/MM3 (134-434); RBC 4.03 M/mm3 (4.00-5.60); RDW 19.6 % (11.9-15.9); WHITE BLOOD COUNT 17.7 K/mm3 (4.0-10.0)
[2017-07-28 15:30] LABS: INR 1.52 (0.82-1.09); PROTHROMBIN TIME (PATIENT) 17.2 SEC (9.7-13.0)
[2017-07-28 15:48] LABS: ALBUMIN 2.1 g/dl (3.4-5.0); ALK PHOS 221 U/L (45-117); ANION GAP 19 (8-16); BILIRUBIN,TOTAL 1.2 mg/dL (0.2-1.0); BLOOD UREA NITROGEN 78 mg/dL (7-18); CALCIUM 9.1 mg/dL (8.5-10.1); CHLORIDE 88 mmol/L (98-107); CO2 18 mmol/L (21-32); CREATININE 2.9 mg/dL (0.7-1.3); GLUCOSE,RANDOM 219 mg/dL (74-106); SGOT/AST 180 U/L (15-37); SGPT/ALT 107 U/L (12-78); SODIUM 125 mmol/L (136-145); TOT PROT 6.3 g/dl (6.4-8.2)
[2017-07-28 15:52] LABS: POTASSIUM 9.3 mmol/L (3.5-5.1)
--- NOTE | 2017-07-28 15:52 | EKG ---
Test Reason : Blood Pressure : / mmHG Vent. Rate : 030 BPM Atrial Rate : 326 BPM P-R Int : 000 ms QRS Dur : 142 ms QT Int : 572 ms P-R-T Axes : 000 -67 061 degrees QTc Int : 404 ms Sinus node arrest with ventricular escape rhythm Confirmed by RUDY MAC MD ([id number]) on 07/28/2017 3:52:23 PM Referred By: Confirmed By:RUDY MAC MD
[2017-07-28 17:02] LABS: ANISOCYTOSIS 2+; MACROCYTOSIS 1+
[2017-07-28 17:03] LABS: PLATELET ESTIMATE ADEQUATE
== END 2017-07-28 18:36 | disposition expired ==
LOC: JER 13:24
PROC: 05HP33Z Insertion of Infusion Device into Right External Jugular Vein, Percutaneous Approach (ICD-10-PCS; principal; 2017-07-28)
DX: I46.9 Cardiac arrest, cause unspecified (principal); I25.10 Atherosclerotic heart disease of native coronary artery without angina pectoris; I11.0 Hypertensive heart disease with heart failure; J45.909 Unspecified asthma, uncomplicated; J44.9 Chronic obstructive pulmonary disease, unspecified; E78.5 Hyperlipidemia, unspecified; F32.9 Major depressive disorder, single episode, unspecified; G47.00 Insomnia, unspecified; C34.90 Malignant neoplasm of unspecified part of unspecified bronchus or lung; C78.7 Secondary malignant neoplasm of liver and intrahepatic bile duct; C79.31 Secondary malignant neoplasm of brain
CPT/HCPCS: 36415; 71045-TC-FY; 80053; 82803; 83605; 85025; 85610; 85730; 87040; 93005; 93010; 99283-25; J7030